=== PATIENT | male | born 1950 | race Caucasian/White ===

== ENCOUNTER 2016-10-11 12:11 | Outpatient (CLI) | payer MEDICARE, BC | END 2016-10-11 12:12 | disposition home or self-care (01) | DX: M19.071 Primary osteoarthritis, right ankle and foot (principal); M76.61 Achilles tendinitis, right leg; R60.0 Localized edema; M77.9 Enthesopathy, unspecified ==

== ENCOUNTER 2016-12-09 10:25 | Outpatient (CLI) | payer MEDICARE, BC | END 2016-12-09 10:26 | disposition home or self-care (01) | LOC: RT 10:25 | PROVIDERS: ATTEND Registered Nurse | DX: R00.2 Palpitations (principal) | CPT/HCPCS: 93005 ==

== ENCOUNTER 2016-12-09 10:56 | Emergency (ER) | payer MEDICARE, BC ==
[2016-12-09 11:26] LABS: BASOPHILS # (AUTO) 0.1 10^3/uL (0.0-0.1); BASOPHILS % (AUTO) 0.9 %; EOSINOPHILS # (AUTO) 0.2 10^3/uL (0.0-0.7); EOSINOPHILS % (AUTO) 2.6 %; HGB - HEMOGLOBIN 15.7 g/dL (14.0-18.0); LYMPHOCYTES # (AUTO) 1.6 10^3/uL (1.5-3.5); LYMPHOCYTES % (AUTO) 17.5 %; MEAN CORPUSCULAR HEMOGLOBIN 30.1 pg (27.0-31.0); MEAN CORPUSCULAR HGB CONC 34.9 g/dL (32.0-36.0); MEAN CORPUSCULAR VOLUME 86.3 fL (80.0-94.0); MEAN PLATELET VOLUME 8.6 fL (7.4-11.4); MONOCYTES # (AUTO) 1.2 10^3/uL (0.0-1.0); NEUTROPHILS # (AUTO) 6.1 10^3/uL (1.5-6.6); RED BLOOD COUNT 5.21 10^6/uL (4.70-6.10); RED CELL DISTRIBUTION WIDTH 13.5 % (12.0-15.0); UNCORRECTED WHITE BLOOD COUNT 9.3 x10^3/uL; WHITE BLOOD COUNT 9.3 x10^3/uL (4.8-10.8)
[2016-12-09 11:39] LABS: ALBUMIN/GLOBULIN RATIO 1.5 (1.0-2.2); BILIRUBIN,TOTAL 0.9 mg/dL (0.2-1.0); CALCIUM 9.3 mg/dL (8.5-10.3); CREATININE 0.9 mg/dL (0.6-1.2); POTASSIUM 3.6 mmol/L (3.5-5.0); TOTAL PROTEIN 7.1 g/dL (6.7-8.2)
--- NOTE | 2016-12-09 12:17 | XRAY Preliminary Report ---
Exam: XR Chest 1 View IMPRESSION: Cardiomegaly with probable mild CHF and early pulmonary edema. [facility] S[facility] [id number]
--- NOTE | 2016-12-09 12:19 | XRAY Report ---
EXAM: CHEST RADIOGRAPHY, PORTABLE ONE VIEW EXAM DATE: 12/09/2016 12:07 PM. CLINICAL HISTORY: 66-year-old male with shortness of breath. COMPARISON: None. TECHNIQUE: 1208 hour AP upright portable view. FINDINGS: Lungs/Pleura: Suboptimal inspiratory effort. Probable mild interstitial edema. No segmental or lobar consolidation, effusion or pneumothorax. Mediastinum: Cardiomegaly with mild pulmonary vascular congestion. Other: Trachea is midline. Osseous structures are unremarkable. IMPRESSION: Cardiomegaly with probable mild CHF and early pulmonary edema. [facility] Referring Provider Line: [phone] SITE ID: [id number]
--- NOTE | 2016-12-09 13:45 | ED Physician Documentation ---
History of Present Illness - Stated complaint Stated Complaint: DIFFICULTY BREATHING - Chief complaint Chief Complaint: Cardiac - Additonal information Additional information: hx from pt 66 male long hx PACand PVCs has seen cardio for same last cardio wup 2 yr ago included a stress and stress echo reportedly normal had a routine appy with PMD today about BP - PMD hear irreg HR and sent pt to the hospital for EKG - while getting the outpt EKG pt was symptomatic with palpitations and SOA (neither new) - so sent to the ER denies fever cough NVD chest pain and edema Review of Systems Constitutional: denies: Fever, Chills Throat: denies: Sore throat Cardiac: reports: Palpitations. denies: Chest pain / pressure Respiratory: reports: Dyspnea. denies: Cough GI: denies: Abdominal Pain, Nausea, Vomiting Musculoskeletal: denies: Extremity swelling Neurologic: denies: Generalized weakness PD PAST MEDICAL HISTORY - Past Medical History Past Medical History: No - Present Medications Home Medications: Ambulatory Orders Medication Instructions Recorded Confirmed Aspirin 1 tab PO DAILY 12/09/16 12/09/16 Lisinopril [Zestril] 40 mg PO DAILY 12/09/16 12/09/16 - Allergies Allergies/Adverse Reactions: Allergies Allergy/AdvReac Type Severity Reaction Status Date / Time Sulfa (Sulfonamide Allergy Rash Verified 12/09/16 12:41 Antibiotics) adhesive tape AdvReac Rash Verified 12/09/16 12:41 - Social History Does the pt smoke?: No Smoking Status: Never smoker Results - Vitals Vitals: Vital Signs - 24 hr 12/09/16 12/09/16 11:00 12:38 Temperature 36.6 C Heart Rate 77 67 Respiratory 18 16 Rate Blood Pressure 189/84 H 169/106 H O2 Saturation 98 98 Oxygen O2 Source Room air - EKG (time done) 1207 Rate: Rate (enter#) (69) Rhythm: NSR, Other (PVCs) QRS: LVH 1047 (outpt) Rate: Rate (enter#) (67) Rhythm: NSR, Other (PVCs) Ischemia: Non specific changes - Labs Labs: Laboratory Tests 12/09/16 12/09/16 12/09/16 11:00 11:00 11:00 WBC 9.3 RBC 5.21 Hgb 15.7 Hct 45.0 MCV 86.3 MCH 30.1 MCHC 34.9 RDW 13.5 Plt Count 194 MPV 8.6 Neut # 6.1 Lymph # 1.6 Dawes # 1.2 H Eos # 0.2 Baso # 0.1 Absolute Nucleated RBC 0.00 Nucleated RBCs 0.0 Sodium 137 Potassium 3.6 Chloride 105 Carbon Dioxide 25 Anion Gap 7.0 BUN 18 Creatinine 0.9 Estimated GFR (MDRD) 85 L Glucose 106 H Calcium 9.3 Total Bilirubin 0.9 AST 43 H ALT 59 Alkaline Phosphatase 70 Troponin I < 0.04 B-Natriuretic Peptide Total Protein 7.1 Albumin 4.3 Globulin 2.8 Albumin/Globulin Ratio 1.5 Lipase 28 12/09/16 12:40 WBC RBC Hgb Hct MCV MCH MCHC RDW Plt Count MPV Neut # Lymph # Dawes # Eos # Baso # Absolute Nucleated RBC Nucleated RBCs Sodium Potassium Chloride Carbon Dioxide Anion Gap BUN Creatinine Estimated GFR (MDRD) Glucose Calcium Total Bilirubin AST ALT Alkaline Phosphatase Troponin I B-Natriuretic Peptide 45 Total Protein Albumin Globulin Albumin/Globulin Ratio Lipase - Rads (name of study) CXR Radiology: See rad report (cardiomegaly, possible CHF/pulm edema) PD MEDICAL DECISION MAKING - ED course ED course: sx are not really new for pt EKG shows PVCs, no major arrhythmia lytes normal possible edema on CXR but no LE edema and neg BNP will reassure and dc to fup PMD for cionsideration of an event monitor and another echo / stress Departure - Departure Disposition: 01 Home, Self Care Clinical Impression: Palpitations Condition: Good Instructions: ED Palpitations Follow-Up: Hilary Rush, NURSE ORTHOPEDIC [Primary Care Provider] - Comments: Your EKG shows PVCs which you have had for years. The xray showed your heart is somewhat enlarged The blood tests were fine - normal electrolytes, no evidence of a heart attack or congestive heart failure. I think it is safe for you to go home. But I do recommend that your follow up with your PMD for further testing beyond what is available such as an event monitor, echocardiogram, and stress test Also your blood pressure was high today - please follow up with your PMD for a recheck
[2016-12-09 14:15] VITALS: BP 98/58
== END 2016-12-09 14:15 | disposition home or self-care (01) ==
LOC: ED 10:56
DX: R00.2 Palpitations (principal); I49.3 Ventricular premature depolarization
CPT/HCPCS: 36415; 71010; 80053; 83690; 83880; 84484; 85025; 93005; 93010; 99284

== ENCOUNTER 2017-07-29 21:46 | Emergency (ER) | payer MEDICARE, BC ==
[2017-07-29 22:54] LABS: BASOPHILS # (AUTO) 0.1 10^3/uL (0.0-0.1); BASOPHILS % (AUTO) 0.5 %; EOSINOPHILS # (AUTO) 0.3 10^3/uL (0.0-0.7); EOSINOPHILS % (AUTO) 2.8 %; HGB - HEMOGLOBIN 14.9 g/dL (14.0-18.0); LYMPHOCYTES # (AUTO) 1.5 10^3/uL (1.5-3.5); LYMPHOCYTES % (AUTO) 14.3 %; MEAN CORPUSCULAR HEMOGLOBIN 30.1 pg (27.0-31.0); MEAN CORPUSCULAR HGB CONC 34.6 g/dL (32.0-36.0); MEAN PLATELET VOLUME 7.7 fL (7.4-11.4); MONOCYTES # (AUTO) 0.9 10^3/uL (0.0-1.0); MONOCYTES % (AUTO) 8.1 %; NEUTROPHILS # (AUTO) 7.8 10^3/uL (1.5-6.6); NEUTROPHILS % (AUTO) 74.3 %; PLT - PLATELET COUNT 255 10^3/uL (130-450); RED BLOOD COUNT 4.96 10^6/uL (4.70-6.10); RED CELL DISTRIBUTION WIDTH 13.5 % (12.0-15.0); WHITE BLOOD COUNT 10.5 x10^3/uL (4.8-10.8)
[2017-07-29 23:05] LABS: ALBUMIN 3.9 g/dL (3.2-5.5); ALBUMIN/GLOBULIN RATIO 1.3 (1.0-2.2); BILIRUBIN,TOTAL 0.4 mg/dL (0.2-1.0); CALCIUM 9.2 mg/dL (8.5-10.3); CREATININE 0.9 mg/dL (0.6-1.2); TOTAL PROTEIN 6.9 g/dL (6.7-8.2)
--- NOTE | 2017-07-29 23:27 | ED Physician Documentation ---
PD HPI OPHTHO - Stated complaint Stated Complaint: BLURRY VISION/PX UNDER RIBS - Chief complaint Chief Complaint: Neuro - History obtained from History obtained from: Patient, Family - History of Present Illness Timing - onset: How many days ago (4) Timing - details: Now resolved, Intermittant Location: Left Associated symptoms: Decreased vision. No: Redness, Swelling Similar symptoms before: Has not had sx before Recently seen: Not recently seen - Additional information Additional information: patient is a 67 year old male with a history of htn, a fib and pre diabetic who is presenting to the emergency department for intermittent blurry vision/vision loss. patient states that he has had three episodes in the last week. the last one was today and lasted about 15 minutes. patient denies any aggravating or alleviating factors and reports that it is painless. patient states that currently the symptoms are gone. patient states that he has a follow up appointment tomorrow with his eye doctor. patient also is complaining of mild abdominal pain. PD PAST MEDICAL HISTORY - Past Medical History Past Medical History: Yes Cardiovascular: Hypertension, High cholesterol, Atrial fibrillation GI: GERD Other Past Medical History: Kidney Cancer - Past Surgical History Past Surgical History: Yes - Present Medications Home Medications: Ambulatory Orders Medication Instructions Recorded Confirmed Lisinopril [Zestril] 40 mg PO DAILY 12/09/16 07/29/17 Atorvastatin Calcium 10 mg PO QPM 07/29/17 07/29/17 Diclofenac Sodium 100 gm TP 07/29/17 Flecainide [Tambocar] 1 tab PO BID 07/29/17 07/29/17 Glucosamine/Chondro Tyson A 1 tab PO BID 07/29/17 07/29/17 [Glucosamine-Chondroitin Tab] Levocetirizine Dihydrochloride 1 tab PO DAILY 07/29/17 07/29/17 [Xyzal] Magnesium Citrate 1 cap PO BID 07/29/17 07/29/17 Metoprolol Succinate 1 tab PO BID 07/29/17 07/29/17 Multivitamin [Multiple Vitamins] 1 tab PO DAILY 07/29/17 07/29/17 Ranitidine HCl [Zantac] 1 tab PO QPM 07/29/17 07/29/17 Rivaroxaban [Xarelto] 1 tab PO QPM 07/29/17 07/29/17 hydroCHLOROthiazide 1 tab PO DAILY 07/29/17 07/29/17 [Hydrochlorothiazide] - Allergies Allergies/Adverse Reactions: Allergies Allergy/AdvReac Type Severity Reaction Status Date / Time Sulfa (Sulfonamide Allergy Rash Verified 07/29/17 22:13 Antibiotics) adhesive tape AdvReac Rash Verified 07/29/17 22:13 - Social History Does the pt smoke?: No Smoking Status: Never smoker Does the pt drink ETOH?: Yes ETOH Use: Liquor Does the pt have substance abuse?: No - Immunizations Immunizations are current?: Yes - POLST Patient has POLST: No Results - Vitals Vitals: Vital Signs - 24 hr 07/29/17 07/29/17 21:50 22:21 Temperature 36.8 C Heart Rate 65 67 Respiratory 12 15 Rate Blood Pressure 159/80 H 177/96 H O2 Saturation 98 98 Oxygen O2 Source Room air - Labs Labs: Laboratory Tests 07/29/17 07/29/17 22:45 22:45 WBC 10.5 RBC 4.96 Hgb 14.9 Hct 43.1 MCV 87.0 MCH 30.1 MCHC 34.6 RDW 13.5 Plt Count 255 MPV 7.7 Neut # 7.8 H Lymph # 1.5 Louisa # 0.9 Eos # 0.3 Baso # 0.1 Absolute Nucleated RBC 0.00 Nucleated RBC % 0.0 Sodium 135 Potassium 3.5 Chloride 97 L Carbon Dioxide 25 Anion Gap 13.0 BUN 19 Creatinine 0.9 Estimated GFR (MDRD) 84 L Glucose 160 H Calcium 9.2 Total Bilirubin 0.4 AST 43 H ALT 57 Alkaline Phosphatase 82 Total Protein 6.9 Albumin 3.9 Globulin 3.0 Albumin/Globulin Ratio 1.3 Lipase 32 Departure - Departure Disposition: 01 Home, Self Care Clinical Impression: CRVO (central retinal vein occlusion) Condition: Good Instructions: Vision Probs Follow-Up: REBECCA DAWKINS MD [Primary Care Provider] - Tomorrow Comments: Your diagnostics today were within normal limits. It is important that you follow up with your eye doctor tomorrow for a more thorough exam. You may return to the emergency department at any time for new, worsening or uncontrollable symptoms.
[2017-07-29 23:51] VITALS: BP 127/77
== END 2017-07-29 23:43 | disposition home or self-care (01) ==
LOC: ED 21:46
DX: H34.8192 Central retinal vein occlusion, unspecified eye, stable (principal); R10.11 Right upper quadrant pain; I10 Essential (primary) hypertension; I48.91 Unspecified atrial fibrillation; Z79.01 Long term (current) use of anticoagulants; K21.9 Gastro-esophageal reflux disease without esophagitis; Z85.528 Personal history of other malignant neoplasm of kidney
CPT/HCPCS: 36415; 80053; 83690; 85025; 93005; 99283; 99285

== ENCOUNTER 2017-10-10 13:31 | Outpatient (CLI) | payer MEDICARE, BC | END 2017-10-10 13:32 | disposition home or self-care (01) | LOC: DI 13:31 | PROVIDERS: ATTEND Nurse Practitioner | DX: C25.0 Malignant neoplasm of head of pancreas (principal); I26.09 Other pulmonary embolism with acute cor pulmonale | CPT/HCPCS: 93306 ==

== ENCOUNTER 2017-10-13 21:44 | Emergency (ER) | payer MEDICARE, BC ==
[2017-10-13 22:10] LABS: BASOPHILS % (AUTO) 0.2 %; HGB - HEMOGLOBIN 13.3 g/dL (14.0-18.0); LYMPHOCYTES # (AUTO) 0.4 10^3/uL (1.5-3.5); MEAN CORPUSCULAR HEMOGLOBIN 29.2 pg (27.0-31.0); MEAN CORPUSCULAR HGB CONC 34.4 g/dL (32.0-36.0); MEAN CORPUSCULAR VOLUME 84.8 fL (80.0-94.0); MEAN PLATELET VOLUME 7.8 fL (7.4-11.4); MONOCYTES # (AUTO) 0.2 10^3/uL (0.0-1.0); MONOCYTES % (AUTO) 1.5 %; NEUTROPHILS # (AUTO) 12.6 10^3/uL (1.5-6.6); NEUTROPHILS % (AUTO) 95.3 %; PLT - PLATELET COUNT 312 10^3/uL (130-450); RED BLOOD COUNT 4.57 10^6/uL (4.70-6.10); RED CELL DISTRIBUTION WIDTH 13.8 % (12.0-15.0); WHITE BLOOD COUNT 13.2 x10^3/uL (4.8-10.8)
[2017-10-13 22:11] LABS: BILIRUBIN,URINE NEGATIVE (NEGATIVE); GLUCOSE, URINE (UA) NEGATIVE (NEGATIVE); KETONES,URINE (UA) NEGATIVE (NEGATIVE); LEUKOCYTE ESTERASE, URINE NEGATIVE (NEGATIVE); NITRITE,URINE NEGATIVE (NEGATIVE); OCCULT BLOOD,URINE NEGATIVE (NEGATIVE); PROTEIN,URINE NEGATIVE (NEGATIVE); UROBILINOGEN,URINE 0.2 (NORMAL) E.U./dL (NORMAL)
[2017-10-13 22:14] LABS: CLARITY,URINE CLEAR (CLEAR)
[2017-10-13] MEDS ORDERED: SODIUM CHLORIDE 0.9% 1,000 ML IV ONE (22:20)
[2017-10-13 22:21] LABS: ALBUMIN 3.4 g/dL (3.2-5.5); BILIRUBIN,TOTAL 1.7 mg/dL (0.2-1.0); CALCIUM 8.5 mg/dL (8.5-10.3); CREATININE 0.9 mg/dL (0.6-1.2); TOTAL PROTEIN 6.9 g/dL (6.7-8.2)
[2017-10-13] MEDS ORDERED: IOPAMIDOL-300 100 ML VIAL ONE (22:44)
[2017-10-13] MEDS ORDERED: ONDANSETRON 4 MG/2 ML VIAL IVP STA (23:12)
[2017-10-13] MEDS ORDERED: ACETAMINOPHEN 500 MG TABLET PO STA (23:14)
[2017-10-13] MEDS ORDERED: ENOXAPARIN 100 MG/ML SYRINGE SUBQ STA (23:14)
--- NOTE | 2017-10-13 23:27 | XRAY Report ---
EXAM: CHEST RADIOGRAPHY EXAM DATE: 10/13/2017 11:11 PM. CLINICAL HISTORY: Fever. Leukocytosis. History of pancreatic cancer. COMPARISON: 12/09/2016. TECHNIQUE: 2 views. FINDINGS: Lungs/Pleura: No focal opacities evident. No pleural effusion. No pneumothorax. Normal volumes. Mediastinum: Large heart. Other: Right IJ line to the cavoatrial junction. No compression fractures. IMPRESSION: 1. Clear lungs. 2. Large heart. [facility] Referring Provider Line: [phone] SITE ID: [id number]
--- NOTE | 2017-10-14 00:12 | ED Physician Documentation ---
History of Present Illness - Stated complaint Stated Complaint: FEVER,MALE - Chief complaint Chief Complaint: Abd Pain - History obtained from History obtained from: Patient, Family - History of Present Illness Timing: Today - Additonal information Additional information: Patient is a 67 year old male with a history of metastatic pancreatic CA with mets to the liver, kidney, stomach and chest. patient states that he started chemotherapy today. After chemotherapy patient developed a low grade fever. patient also states that he has a history of urinary tract infections and he felt like he had dysuria. Patient called his oncologist and talked with Dr. Ballesteros the covering physician who recommended that the patient come in for evaluation. Review of Systems Constitutional: reports: Fever. denies: Myalgias Eyes: denies: Decreased vision Ears: denies: Ear pain, Drainage/discharge Nose: denies: Congestion Throat: denies: Dental pain / toothache Cardiac: denies: Chest pain / pressure, Palpitations Respiratory: denies: Cough, Wheezing GI: reports: Abdominal Pain, Nausea. denies: Vomiting, Constipation, Diarrhea : reports: Dysuria, Frequency Skin: denies: Rash, Lesions Musculoskeletal: reports: Reviewed and negative Neurologic: denies: Generalized weakness, Focal weakness, Numbness, Headache, Head injury Immunocompromised: reports: Immunocompromised, Chemotherapy PD PAST MEDICAL HISTORY - Past Medical History Cardiovascular: Hypertension, High cholesterol, Atrial fibrillation GI: GERD Other Past Medical History: PE, pancreatic cancer, stomach cancer - Past Surgical History Past Surgical History: Yes - Present Medications Home Medications: Ambulatory Orders Medication Instructions Recorded Confirmed Lisinopril [Zestril] 40 mg PO DAILY 12/09/16 07/29/17 Atorvastatin Calcium 10 mg PO QPM 07/29/17 07/29/17 Diclofenac Sodium 100 gm TP 07/29/17 Flecainide [Tambocar] 1 tab PO BID 07/29/17 07/29/17 Glucosamine/Chondro Tyson A 1 tab PO BID 07/29/17 07/29/17 [Glucosamine-Chondroitin Tab] Levocetirizine Dihydrochloride 1 tab PO DAILY 07/29/17 07/29/17 [Xyzal] Magnesium Citrate 1 cap PO BID 07/29/17 07/29/17 Metoprolol Succinate 1 tab PO BID 07/29/17 07/29/17 Multivitamin [Multiple Vitamins] 1 tab PO DAILY 07/29/17 07/29/17 Ranitidine HCl [Zantac] 1 tab PO QPM 07/29/17 07/29/17 Rivaroxaban [Xarelto] 1 tab PO QPM 07/29/17 07/29/17 hydroCHLOROthiazide 1 tab PO DAILY 07/29/17 07/29/17 [Hydrochlorothiazide] Ondansetron Odt [Zofran] 4 mg TL Q6H PRN #14 tablet 10/14/17 - Allergies Allergies/Adverse Reactions: Allergies Allergy/AdvReac Type Severity Reaction Status Date / Time Sulfa (Sulfonamide Allergy Rash Verified 10/13/17 21:53 Antibiotics) adhesive tape AdvReac Rash Verified 10/13/17 21:53 - Social History Does the pt smoke?: No Smoking Status: Never smoker Does the pt drink ETOH?: Yes Does the pt have substance abuse?: No - Immunizations Immunizations are current?: Yes - POLST Patient has POLST: No PD ED PE NORMAL - Vitals Vital signs reviewed: Yes - General General: Alert and oriented X 3 - HEENT HEENT: Atraumatic - Neck Neck: Supple, no meningeal sign - Respiratory Respiratory: No respiratory distress - Derm Derm: Normal color, Warm and dry - Extremities Extremities: No deformity - Neuro Neuro: Alert and oriented X 3, No motor deficit Eye Opening: Spontaneous Motor: Obeys Commands Verbal: Oriented GCS Score: 15 PD ED PE EXPANDED - HEENT HEENT: Dry mucous membranes - Cardiac Cardiac: Tachy - Abdomen Abdomen: Tender to palpation, Generalized/diffuse. No: Rebound, Guarding Results - Vitals Vitals: Vital Signs - 24 hr 10/13/17 10/13/17 10/14/17 21:50 23:10 00:00 Temperature 37.4 C 38.3 C H Heart Rate 117 H 101 H 88 Respiratory 20 18 18 Rate Blood Pressure 163/77 H 139/79 H 133/76 H O2 Saturation 97 99 95 10/14/17 00:23 Temperature 37.4 C Heart Rate Respiratory Rate Blood Pressure O2 Saturation Oxygen O2 Source Room air - Labs Labs: Laboratory Tests 10/13/17 10/13/17 10/13/17 21:50 21:50 21:50 WBC 13.2 H RBC 4.57 L Hgb 13.3 L Hct 38.8 L MCV 84.8 MCH 29.2 MCHC 34.4 RDW 13.8 Plt Count 312 MPV 7.8 Neut # 12.6 H Lymph # 0.4 L Rankin # 0.2 Eos # 0.0 Baso # 0.0 Absolute Nucleated RBC 0.00 Nucleated RBC % 0.0 Sodium 131 L Potassium 3.5 Chloride 97 L Carbon Dioxide 24 Anion Gap 10.0 BUN 21 H Creatinine 0.9 Estimated GFR (MDRD) 84 L Glucose 141 H Lactic Acid 1.5 Calcium 8.5 Total Bilirubin 1.7 H AST 298 H ALT 261 H Alkaline Phosphatase 304 H Total Protein 6.9 Albumin 3.4 Globulin 3.5 Albumin/Globulin Ratio 1.0 Lipase 20 L Urine Color Urine Clarity Urine pH Ur Specific Stollings Urine Protein Urine Glucose (UA) Urine Ketones Urine Occult Blood Urine Nitrite Urine Bilirubin Urine Urobilinogen Ur Leukocyte Esterase Ur Microscopic Review Urine Culture Comments Influenza A (Rapid) Influenza B (Rapid) Influenza Types A,B Ag 10/13/17 10/13/17 22:03 22:30 WBC RBC Hgb Hct MCV MCH MCHC RDW Plt Count MPV Neut # Lymph # Rankin # Eos # Baso # Absolute Nucleated RBC Nucleated RBC % Sodium Potassium Chloride Carbon Dioxide Anion Gap BUN Creatinine Estimated GFR (MDRD) Glucose Lactic Acid Calcium Total Bilirubin AST ALT Alkaline Phosphatase Total Protein Albumin Globulin Albumin/Globulin Ratio Lipase Urine Color YELLOW Urine Clarity CLEAR Urine pH 6.0 Ur Specific Stollings 1.025 Urine Protein NEGATIVE Urine Glucose (UA) NEGATIVE Urine Ketones NEGATIVE Urine Occult Blood NEGATIVE Urine Nitrite NEGATIVE Urine Bilirubin NEGATIVE Urine Urobilinogen 0.2 (NORMAL) Ur Leukocyte Esterase NEGATIVE Ur Microscopic Review NOT INDICATED Urine Culture Comments NOT INDICATED Influenza A (Rapid) Negative Influenza B (Rapid) Negative Influenza Types A,B Ag - - Rads (name of study) chest x-ray Radiology: Final report received (no infiltrate) PD MEDICAL DECISION MAKING - ED course Complexity details: reviewed old records, reviewed results, re-evaluated patient , considered differential, d/w patient, d/w family, d/w technical assistance consultant ED course: patient was seen and examined at bedside. IV access was gained, labs were drawn including blood cultures. Patient's urine was collected. patient was treated with at fluid bolus. Patient's urinalysis showed no signs of infection so chest x-ray and influenza were also ordered. Patient was found to have a leukocytosis but no source. patient's oncologist, Dr. Ballesteros was contacted and the case was discussed with him. He stated that it could be a reaction to the chemo and that he would not start antibiotics at this point. He stated that the patient could follow up with the office tomorrow. Patient and family were made aware of, and were comfortable with the plan. Patient was stable for discharge with outpatient follow up. Departure - Departure Disposition: 01 Home, Self Care Clinical Impression: Fever Condition: Stable Instructions: ACETAMINOPHEN (Adult) Follow-Up: REBECCA DAWKINS MD [Primary Care Provider] - Prescriptions: Ondansetron Odt [Zofran] 4 mg TL Q6H PRN #14 tablet PRN Reason: Nausea / Vomiting Comments: Your urinalysis and chest x-ray were negative today. Your fever is likely secondary to your chemotherapy today. It is important to stay well hydrated and call the oncology group tomorrow and schedule a close follow up appointment. You should continue with tylenol for fevers. You may return to the emergency department at any time for new, worsening or uncontrollable symptoms. Discharge Date/Time: 10/14/17 00:23
[2017-10-14 00:22] VITALS: BP 133/76
--- NOTE | 2017-10-14 07:21 | ED Physician Documentation ---
ED Addendum - Addendum Addendum: 10/14/17 07:[address]ology inquiring about a CT AP ordered for this pt chart accessed to assist per nurse EG, who cared for pt, Dr Saamniego cancelled the CT
== END 2017-10-14 00:23 | disposition home or self-care (01) ==
LOC: ED 21:44
DX: R50.9 Fever, unspecified (principal); C25.9 Malignant neoplasm of pancreas, unspecified; C78.7 Secondary malignant neoplasm of liver and intrahepatic bile duct; C78.89 Secondary malignant neoplasm of other digestive organs; C79.00 Secondary malignant neoplasm of unspecified kidney and renal pelvis; I10 Essential (primary) hypertension; E78.00 Pure hypercholesterolemia, unspecified; Z92.21 Personal history of antineoplastic chemotherapy
CPT/HCPCS: 36415; 71046; 80053; 81003; 83605; 83690; 85025; 87040; 87275; 87276; 96361; 96372; 96374; 99283; 99284; A9270; J1650; 81001; 87086

== ENCOUNTER 2017-11-11 13:00 | Outpatient (CLI) | payer MEDICARE, BC | END 2017-11-11 13:01 | disposition home or self-care (01) | LOC: LAB.R 13:00 | PROVIDERS: ATTEND Nurse Practitioner Family | DX: R10.9 Unspecified abdominal pain (principal); R19.7 Diarrhea, unspecified | CPT/HCPCS: 87493 ==

== ENCOUNTER 2017-12-08 08:00 | Outpatient (CLI) | payer MEDICARE, BC ==
[2017-12-08 17:38] LABS: BASOPHILS % (AUTO) 1.1 %; EOSINOPHILS # (AUTO) 0.1 10^3/uL (0.0-0.7); EOSINOPHILS % (AUTO) 2.1 %; HGB - HEMOGLOBIN 10.8 g/dL (14.0-18.0); LYMPHOCYTES # (AUTO) 0.3 10^3/uL (1.5-3.5); LYMPHOCYTES % (AUTO) 7.8 %; MEAN CORPUSCULAR HEMOGLOBIN 28.4 pg (27.0-31.0); MEAN CORPUSCULAR HGB CONC 33.1 g/dL (32.0-36.0); MEAN CORPUSCULAR VOLUME 85.6 fL (80.0-94.0); MEAN PLATELET VOLUME 8.2 fL (7.4-11.4); MONOCYTES # (AUTO) 0.3 10^3/uL (0.0-1.0); MONOCYTES % (AUTO) 7.5 %; NEUTROPHILS # (AUTO) 3.4 10^3/uL (1.5-6.6); NEUTROPHILS % (AUTO) 81.5 %; PLT - PLATELET COUNT 233 10^3/uL (130-450); RED BLOOD COUNT 3.81 10^6/uL (4.70-6.10); RED CELL DISTRIBUTION WIDTH 17.9 % (12.0-15.0); WHITE BLOOD COUNT 4.2 x10^3/uL (4.8-10.8)
[2017-12-08 18:19] LABS: ALBUMIN 2.4 g/dL (3.2-5.5); ALBUMIN/GLOBULIN RATIO 0.6 (1.0-2.2); BILIRUBIN,TOTAL 1.4 mg/dL (0.2-1.0); CALCIUM 8.6 mg/dL (8.5-10.3); CREATININE 0.8 mg/dL (0.6-1.2); TOTAL PROTEIN 6.4 g/dL (6.7-8.2)
== END 2017-12-08 08:01 | disposition home or self-care (01) ==
LOC: LAB.F 08:00
PROVIDERS: ATTEND Internal Medicine Hematology & Oncology
DX: C25.0 Malignant neoplasm of head of pancreas (principal); I26.09 Other pulmonary embolism with acute cor pulmonale
CPT/HCPCS: 36415; 80053; 85025

== ENCOUNTER 2017-12-28 13:34 | Outpatient (CLI) | payer MEDICARE, BC ==
[2017-12-28 18:04] LABS: BASOPHILS % (AUTO) 1.3 %; EOSINOPHILS % (AUTO) 0.8 %; HGB - HEMOGLOBIN 11.1 g/dL (14.0-18.0); LYMPHOCYTES % (AUTO) 9.1 %; MEAN CORPUSCULAR HEMOGLOBIN 28.7 pg (27.0-31.0); MEAN CORPUSCULAR HGB CONC 32.1 g/dL (32.0-36.0); MEAN CORPUSCULAR VOLUME 89.7 fL (80.0-94.0); MEAN PLATELET VOLUME 7.5 fL (7.4-11.4); NEUTROPHILS % (AUTO) 71.8 %; PLT - PLATELET COUNT 611 10^3/uL (130-450); RED BLOOD COUNT 3.85 10^6/uL (4.70-6.10); RED CELL DISTRIBUTION WIDTH 20.2 % (12.0-15.0)
[2017-12-28 18:05] LABS: ABNORMAL LYMPHS % (MANUAL) 0 %; BAND NEUTROPHILS % (MANUAL) 0 %
[2017-12-28 18:22] LABS: ALBUMIN 2.1 g/dL (3.2-5.5); ALBUMIN/GLOBULIN RATIO 0.6 (1.0-2.2); BILIRUBIN,TOTAL 0.9 mg/dL (0.2-1.0); CALCIUM 8.3 mg/dL (8.5-10.3); CREATININE 0.7 mg/dL (0.6-1.2); TOTAL PROTEIN 5.9 g/dL (6.7-8.2)
[2017-12-28 20:18] LABS: BASOPHILS # (MANUAL) 0.3 10^3/uL (0-0.1); BASOPHILS % (MANUAL) 2 %; EOSINOPHILS # (MANUAL) 0.3 10^3/uL (0-0.7); LYMPHOCYTES # (MANUAL) 1.5 10^3/uL (1.5-3.5); LYMPHOCYTES % (MANUAL) 9 %; METAMYELOCYTES % (MANUAL) 3 %; MONOCYTES # (MANUAL) 2.1 10^3/uL (0.0-1.0); MYELOCYTES % (MANUAL) 3 %; NEUTROPHILS # (MANUAL) 8.8 10^3/uL (1.5-6.6); NEUTROPHILS % (MANUAL) 63 %; PROMYELOCYTES % (MANUAL) 1 %
[2017-12-28 20:20] LABS: PLATELET ESTIMATE, MANUAL INCREASED (>450,000) (NORMAL); PLATELET MORPHOLOGY NORMAL APPEARANCE (NORMAL)
== END 2017-12-28 13:35 | disposition home or self-care (01) ==
LOC: LAB.F 13:34
PROVIDERS: ATTEND Internal Medicine Hematology & Oncology
DX: C25.0 Malignant neoplasm of head of pancreas (principal)
CPT/HCPCS: 36415; 80053; 85025

== ENCOUNTER 2018-01-05 11:42 | Outpatient (CLI) | payer MEDICARE, BC ==
[2018-01-05 17:42] LABS: CALCIUM 8.6 mg/dL (8.5-10.3); CREATININE 0.8 mg/dL (0.6-1.2)
== END 2018-01-05 23:59 | disposition home or self-care (01) ==
LOC: LAB.F 11:42
PROVIDERS: ATTEND Internal Medicine Hematology & Oncology
DX: C25.0 Malignant neoplasm of head of pancreas (principal); I26.09 Other pulmonary embolism with acute cor pulmonale
CPT/HCPCS: 80048

== ENCOUNTER 2018-01-11 12:19 | Outpatient (CLI) | payer MEDICARE, BC ==
[2018-01-11 17:43] LABS: BASOPHILS # (AUTO) 0.1 10^3/uL (0.0-0.1); BASOPHILS % (AUTO) 1.4 %; EOSINOPHILS # (AUTO) 0.1 10^3/uL (0.0-0.7); EOSINOPHILS % (AUTO) 2.6 %; HGB - HEMOGLOBIN 11.5 g/dL (14.0-18.0); LYMPHOCYTES # (AUTO) 0.7 10^3/uL (1.5-3.5); LYMPHOCYTES % (AUTO) 15.1 %; MEAN CORPUSCULAR HEMOGLOBIN 28.8 pg (27.0-31.0); MEAN CORPUSCULAR HGB CONC 32.7 g/dL (32.0-36.0); MEAN CORPUSCULAR VOLUME 88.1 fL (80.0-94.0); MEAN PLATELET VOLUME 7.6 fL (7.4-11.4); MONOCYTES # (AUTO) 0.8 10^3/uL (0.0-1.0); MONOCYTES % (AUTO) 15.3 %; NEUTROPHILS # (AUTO) 3.2 10^3/uL (1.5-6.6); NEUTROPHILS % (AUTO) 65.6 %; PLT - PLATELET COUNT 329 10^3/uL (130-450); RED CELL DISTRIBUTION WIDTH 18.8 % (12.0-15.0); WHITE BLOOD COUNT 4.9 x10^3/uL (4.8-10.8)
[2018-01-11 18:11] LABS: ALBUMIN 2.3 g/dL (3.2-5.5); ALBUMIN/GLOBULIN RATIO 0.6 (1.0-2.2); BILIRUBIN,TOTAL 0.9 mg/dL (0.2-1.0); CALCIUM 8.6 mg/dL (8.5-10.3); CREATININE 0.9 mg/dL (0.6-1.2)
== END 2018-01-11 12:20 | disposition home or self-care (01) ==
LOC: LAB.F 12:19
PROVIDERS: ATTEND Internal Medicine Hematology & Oncology
DX: C25.0 Malignant neoplasm of head of pancreas (principal); I26.09 Other pulmonary embolism with acute cor pulmonale
CPT/HCPCS: 36415; 80053; 85025

== ENCOUNTER 2018-01-21 13:30 | Outpatient (CLI) | payer MEDICARE, BC ==
[2018-01-21 17:42] LABS: INR 1.2 (0.8-1.2); PT - PROTHROMBIN TIME 13.3 secs (9.9-12.6)
== END 2018-01-21 13:31 | disposition home or self-care (01) ==
LOC: LAB.F 13:30
PROVIDERS: ATTEND Physician Assistant
DX: C25.0 Malignant neoplasm of head of pancreas (principal); I26.09 Other pulmonary embolism with acute cor pulmonale
CPT/HCPCS: 36415; 85610; 85730

== ENCOUNTER 2018-01-26 12:58 | Outpatient (CLI) | payer MEDICARE, BC ==
[2018-01-26 17:43] LABS: BASOPHILS # (AUTO) 0.1 10^3/uL (0.0-0.1); BASOPHILS % (AUTO) 1.3 %; EOSINOPHILS # (AUTO) 0.1 10^3/uL (0.0-0.7); EOSINOPHILS % (AUTO) 1.4 %; HGB - HEMOGLOBIN 11.3 g/dL (14.0-18.0); LYMPHOCYTES # (AUTO) 0.8 10^3/uL (1.5-3.5); LYMPHOCYTES % (AUTO) 15.7 %; MEAN CORPUSCULAR HEMOGLOBIN 28.1 pg (27.0-31.0); MEAN CORPUSCULAR HGB CONC 32.1 g/dL (32.0-36.0); MEAN CORPUSCULAR VOLUME 87.5 fL (80.0-94.0); MEAN PLATELET VOLUME 7.5 fL (7.4-11.4); MONOCYTES % (AUTO) 20.3 %; NEUTROPHILS % (AUTO) 61.3 %; PLT - PLATELET COUNT 346 10^3/uL (130-450); RED CELL DISTRIBUTION WIDTH 18.3 % (12.0-15.0); WHITE BLOOD COUNT 4.9 x10^3/uL (4.8-10.8)
[2018-01-26 17:57] LABS: ALBUMIN 2.5 g/dL (3.2-5.5); ALBUMIN/GLOBULIN RATIO 0.7 (1.0-2.2); BILIRUBIN,TOTAL 0.4 mg/dL (0.2-1.0); CALCIUM 8.7 mg/dL (8.5-10.3); CREATININE 0.8 mg/dL (0.6-1.2); TOTAL PROTEIN 6.3 g/dL (6.7-8.2)
== END 2018-01-26 12:59 | disposition home or self-care (01) ==
LOC: LAB.F 12:58
PROVIDERS: ATTEND Physician Assistant
DX: C25.0 Malignant neoplasm of head of pancreas (principal); I26.09 Other pulmonary embolism with acute cor pulmonale
CPT/HCPCS: 36415; 80053; 85025

== ENCOUNTER 2018-03-09 13:26 | Outpatient (CLI) | payer MEDICARE, BC ==
[2018-03-09 17:34] LABS: BASOPHILS % (AUTO) 1.3 %; EOSINOPHILS % (AUTO) 1.3 %; HGB - HEMOGLOBIN 11.7 g/dL (14.0-18.0); LYMPHOCYTES # (AUTO) 0.7 10^3/uL (1.5-3.5); LYMPHOCYTES % (AUTO) 18.8 %; MEAN CORPUSCULAR HEMOGLOBIN 28.4 pg (27.0-31.0); MEAN CORPUSCULAR HGB CONC 33.7 g/dL (32.0-36.0); MEAN CORPUSCULAR VOLUME 84.4 fL (80.0-94.0); MEAN PLATELET VOLUME 7.2 fL (7.4-11.4); MONOCYTES # (AUTO) 0.8 10^3/uL (0.0-1.0); MONOCYTES % (AUTO) 23.4 %; NEUTROPHILS # (AUTO) 1.9 10^3/uL (1.5-6.6); NEUTROPHILS % (AUTO) 55.2 %; PLT - PLATELET COUNT 283 10^3/uL (130-450); RED BLOOD COUNT 4.12 10^6/uL (4.70-6.10); RED CELL DISTRIBUTION WIDTH 18.3 % (12.0-15.0); WHITE BLOOD COUNT 3.5 x10^3/uL (4.8-10.8)
[2018-03-09 19:12] LABS: ALBUMIN 2.2 g/dL (3.2-5.5); ALBUMIN/GLOBULIN RATIO 0.5 (1.0-2.2); BILIRUBIN,TOTAL 0.5 mg/dL (0.2-1.0); CALCIUM 8.6 mg/dL (8.5-10.3); CREATININE 0.8 mg/dL (0.6-1.2); TOTAL PROTEIN 6.6 g/dL (6.7-8.2)
== END 2018-03-09 13:27 | disposition home or self-care (01) ==
LOC: LAB.F 13:26
PROVIDERS: ATTEND Internal Medicine Hematology & Oncology
DX: C25.0 Malignant neoplasm of head of pancreas (principal); I26.09 Other pulmonary embolism with acute cor pulmonale
CPT/HCPCS: 36415; 80053; 85025; 86301

== ENCOUNTER 2018-03-22 18:56 | Outpatient (CLI) | payer MEDICARE, BC ==
--- NOTE | 2018-03-22 19:03 | CONSULTATION NOTE ---
Palliative Care Consultation - Referral Referring Provider: Sahra YOUNG Time of Visit: [id number] Referral setting: Home Referral Reason: Pancreatic Cancer with liver, lung mets and peritoneal carcinomatosis - Information Sources Records reviewed: Previous records reviewed History/Review of Systems obtained from: Patient, Family ( Sandra and Daughter Delia present for visit) Exam limitations: No limitations - History of Present Illness Brief History of Present Illness: Thank you Sahra YOUNG, for asking the palliative care consult service to provide support here in his own community through [email or web address]. Will follow up with Dr. Sun, and transition consult, Thank you for making this connection. This is a 67-year-old gentleman who presented in September in 2017 with progressive dyspnea and abdominal bloating, was found to have bilateral segmental PEs, and in workup found innumerable hepatic lesions, and a mass of 1.7 cm x 3.6 cm in the body of the pancreas. He also had celiac and retroperitoneal adenopathy and peritoneal carcinomatosis as well as ascites and lung mets. He had CT-guided biopsy with a diagnosis of metastatic adenocarcinoma with mucinous differentiation. He had a prolonged hospital stay related to this, was initiated on treatment in October of gemcitabine/Abraxane. He did poorly with this regimen, and was hospitalized with fever, and on restaging on 12/21/2017 was found to have an increase in liver lesions. Since this time in December, he has been on FOLFOX, he has received a total of 5 cycles, due to receive his 6th this week. He has done better with this treatment. He continues though have severe recurrent ascites, necessitating paracentesis about every 2-3 weeks with a fairly large volume removed of anywhere from 6 to most recently 8 L of fluid. He recently had a second opinion at [facility], unfortunately he was not a candidate for a clinical trial, and was very disappointed in the outcome of this visit. His most significant symptom burden actually is fatigue, he does have large abdomen with ascites, is expecting to be tapped this Thursday. He does get some shortness of breath as he gets close to this time, has early satiety, has lost about 50 pounds over all, the most problematic for patient is his difficulty with alternating constipation and diarrhea. Denies any acute pain, though does appear somewhat uncomfortable with his swelling. Palliative care did see him a [facility], and recommended ongoing support for advanced care planning, symptom management, and to address transitions in the future. 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 (Patient lives on [address] [facility], he has been 38 years to Xiao, they do have 2 children Delia is a pediatric nurse who is present for the visit. They also have a son Sean is 35, and 2 grandchildren who are 7 and 3 that [place]. He identifies this as a support, and at goal. 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) Family History - Family History Family History: Mother: (mother CHF 72), Father: , CAD, Sister: Alive and Well ( of brain cancer at 51; sister of bone cancer 60) Medications/Allergies - Medications Home Medications: Ambulatory Orders Medication Instructions Recorded Confirmed Metoprolol Succinate 25 tab PO DAILY 07/29/17 03/22/18 Ranitidine HCl [Zantac] 1 tab PO QPM 07/29/17 03/22/18 Ondansetron Odt [Zofran] 4 mg TL Q6H PRN #14 tablet 10/14/17 03/22/18 Enoxaparin [Lovenox] 120 mg SL DAILY 03/22/18 03/22/18 Furosemide 20 mg PO DAILY 03/22/18 03/22/18 Lactobacillus Acidophilus 1 cap PO DAILY 03/22/18 03/22/18 [Probiotic Acidophilus] Lipase/Protease/Amylase [Creon Dr 1 cap PO TID 03/22/18 03/22/18 3,000 Units Capsule] Opium Tincture 0.4 ml PO Q4HR PRN 03/22/18 03/22/18 Polyethylene Glycol 3350 [Miralax] 17 gm PO DAILY 03/22/18 03/22/18 Prochlorperazine Maleate 10 mg PO Q6HR PRN 03/22/18 03/22/18 [Compazine] Spironolactone 50 mg PO DAILY 03/22/18 03/22/18 - Allergies Allergies/Adverse Reactions: Allergies Allergy/AdvReac Type Severity Reaction Status Date / Time Sulfa (Sulfonamide Allergy Rash Verified 10/13/17 21:53 Antibiotics) adhesive tape AdvReac Rash Verified 10/13/17 21:53 Review of Systems - Constitutional Constitutional: reports: Fatigue, Weakness, Poor appetite, Weight loss (reports about 50 pound weight loss) - Eyes Eyes: reports: Vision loss, Corrective lenses - Ears, Nose & Throat Ears, Nose & Throat: reports: Hearing loss, Tinnitus - Cardiovascular Cardiovascular: reports: Palpitations, Edema, Exertional dyspnea, Decr. exercise tolerance - Respiratory Respiratory: reports: SOB with exertion. denies: SOB at rest - Gastrointestinal Gastrointestinal: reports: Abdominal distention, Constipation, Diarrhea, Nausea, Bloating, Poor appetite, Early satiety - Genitourinary Genitourinary: reports: Frequency, Sexual dysfunction - Musculoskeletal Musculoskeletal: reports: Stiffness, Muscle weakness - Integumentary Integumentary: reports: Lesions (left back of calf-about one year one cm), Dryness - Neurological Neurological: reports: General weakness - Psychiatric Psychiatric: reports: Depression, Anxiety - Hematologic/Lymphatic Hematologic/Lymphatic: reports: Anemia, Blood clots, Recurrent infections - All Other Systems All Other Systems: reports: Reviewed and negative Physical Exam - Vital Signs Temperature: 97.1 C Pulse Rate: 77 Respiratory Rate: 18 O2 Saturation: 96 (ra @ rest) Blood Pressure: 122/72 - Physical Exam General Appearance: positive: No acute distress Eyes Bilateral: positive: Normal inspection ENT: positive: No signs of dehydration Neck: positive: No JVD, Trachea midline Cardiovascular: positive: Regular rate & rhythm Respiratory: positive: Diminished in bases. negative: Wheezes, Rales, Rhonchi Abdomen: positive: Soft, Nml bowel sounds, Distended, Taut, Other (palpated nodularity through abd. wall) Skin: positive: Pallor, Dryness, Other (1 cm flat lesion on back of left calf; non tender). negative: Jaundice Extremities: positive: Pedal edema (trace pedal edema) Neurologic/Psychiatric: positive: Oriented x3, Mood/affect nml, Weakness, Flat affect Palliative Care - POLST Patient has POLST: Yes POLST Status: DNR, Selective Treatment Pain: Comment Tiredness/Fatigue: Severe (7-10) (This appear in his description to have activity intolerance, does spend quite a bit of time in the recliner. He is still ambulatory but finds himself tiring quite easily.) Drowsiness/Sedation: Severe (7-10) Nausea: Severe (7-10) Depression: Mild (1-3) Anxiety: Mild (1-3) Anorexia: None Sleep: Variable sleep pattern Constipation: Yes, Unmanaged, Intermittent constipation, Comment (Patient describes having "constipation" in the morning, this is quite distressful for him, does have a lot of rectal pressure until this is released which then by mid afternoon is loose and watery. Unable to link if related to eating and enzymes. Does use MiraLAX on a nightly basis, and tincture of opium if he needs to travel. He does feel somewhat like a prisoner because of the urgency of his bowel movements) Feelings of wellbeing/Perceived Quality of Life: Fair, Worsening Performance Status: Patient is able to ambulate through house, still managing his own ADLs, has not used an assistive device yet. He has not had any falls. He reports he is quite careful and intentional. - Palliative Care Discussion: Discussion regarding patient's goals was integrated through the visit, patient does understand the seriousness of his illness, is hoping to be that 3-4% that survive, though is not realistic in his presentation as far as his questions and planning forward into the future. He does feel he has lived a good life, he is thankful for his family, he has no regrets. His priority is spending time with family, and drilling down he would like to avoid hospitalization. He does have a difficult time talking about the future, reports he has a "warrior attitude" But is willing to balance the conversation and addressing the concerns expressed by his and daughter. Their experience with hospice has been with her father and mother, both were on extended periods of time and had chronic illnesses. We did discuss at length his advanced care planning. He does have a document, though it is not really helpful as far as looking at where he currently is in his current goals. We did fill out the [facility], as a DNAR/allow natural , with selected treatments. Patient is still wanting to treat reversible conditions, he does not want to in the hospital and would like to be at home. This was a door to open and talk about hospice and hospice services into the future. Patient feels currently his quality of life is acceptable, though he does have significant symptom burden does not perceive this at a place where he would not continue with treatment. He remains hoping for the best, though was disappointed there were no further options for him in the clinical trials department. He does trust and appreciate his relationship with his current oncologist Dr. Sun. And is willing to have palliative care to provide ongoing support. Results - Lab Results Lab results reviewed: Yes Impression and Recommendations - Palliative Care Impression: This is a kimberly 67-year-old gentleman who has pancreatic cancer with extensive disease to the liver, lungs, and peritoneum. He does have recurrent ascites, weight loss, anorexia, and multiple GI symptoms. Patient continues an active treatment, and still perceives he is at a place where his current quality of life is acceptable. Palliative care to continue provide support and anticipatory guidance. Recommendations/Counseling Done: 1. Diarrhea, this is multifactorial in origin. Patient is using his Creon and enzymes, using MiraLAX late in the evening, secondary to concerns of constipation in the a.m. Patient currently fairly attached to his current regimen, did suggest taking the MiraLAX early in the evening, did discuss controlling diarrhea more aggressively if having greater than 2-3 diarrhea watery stools a day secondary to fluid and potassium loss. We will continue to monitor, and adjust as patient allows. 2. Ascites. Patient has been receiving fairly large volume shifts with his paracentesis. Has had suggested Pleurx catheter, he does find currently the every 2 week paracentesis acceptable. We did discuss in the context of future management of taking off less volume more frequently may improve his comfort. He will continue to weigh benefits and burdens into the future. This would be a good intervention in the context of patient were transitioning to more of a comfort mode, has been able to do this in the home setting and decrease trips over town. 3. Pancreatic cancer with metastases to the liver lung and peritoneal carcinomatosis. Patient currently perceives he is tolerating FOLFOX, does understand the goal is for quality and quantity, not curative in intent. At this point in time does feel like it is "holding the disease at bay". Counseling provided regarding weighing benefits and burdens in the context of quality of life, patient is hoping to avoid further hospitalizations in any acute complications. [facility] had recommended MSI testing in consult, family concerned if this was ordered, contact made to Dr. Sun with request. 4. Advanced care planning. Counseling done regarding [facility], defining patient's goals of care, sitting up rapport, addressing family concerns. Patient does have long-term care insurance, though does have a 90 day waiting pe riod, currently does not meet criteria is does not need support for personal care issues. Daughter would like her father to pursue genetic counseling, Dr. Sun will facilitate with [facility]. Time Spent: 75 minutes with greater than 50% of this done in counseling Regarding symptom management, continuum of care, anticipatory guidance and coordination of care with oncology.
== END 2018-03-22 18:57 | disposition home or self-care (01) ==
LOC: PC 18:56
PROVIDERS: ATTEND Nurse Practitioner Adult Health
DX: Z51.5 Encounter for palliative care (principal); R19.7 Diarrhea, unspecified; K59.00 Constipation, unspecified; R18.8 Other ascites; C25.9 Malignant neoplasm of pancreas, unspecified; C78.7 Secondary malignant neoplasm of liver and intrahepatic bile duct; C78.00 Secondary malignant neoplasm of unspecified lung; C78.6 Secondary malignant neoplasm of retroperitoneum and peritoneum; Z79.899 Other long term (current) drug therapy; R53.83 Other fatigue; R14.0 Abdominal distension (gaseous); Z66 Do not resuscitate
CPT/HCPCS: 99345

== ENCOUNTER 2018-03-23 13:46 | Outpatient (CLI) | payer MEDICARE, BC ==
[2018-03-23 18:08] LABS: BASOPHILS # (AUTO) 0.1 10^3/uL (0.0-0.1); BASOPHILS % (AUTO) 1.3 %; EOSINOPHILS % (AUTO) 0.9 %; HGB - HEMOGLOBIN 11.7 g/dL (14.0-18.0); LYMPHOCYTES # (AUTO) 0.6 10^3/uL (1.5-3.5); LYMPHOCYTES % (AUTO) 15.9 %; MEAN CORPUSCULAR HEMOGLOBIN 28.1 pg (27.0-31.0); MEAN CORPUSCULAR HGB CONC 33.9 g/dL (32.0-36.0); MEAN CORPUSCULAR VOLUME 82.9 fL (80.0-94.0); MEAN PLATELET VOLUME 7.3 fL (7.4-11.4); MONOCYTES % (AUTO) 26.5 %; NEUTROPHILS # (AUTO) 2.1 10^3/uL (1.5-6.6); NEUTROPHILS % (AUTO) 55.4 %; PLT - PLATELET COUNT 295 10^3/uL (130-450); RED BLOOD COUNT 4.16 10^6/uL (4.70-6.10); RED CELL DISTRIBUTION WIDTH 18.5 % (12.0-15.0); WHITE BLOOD COUNT 3.9 x10^3/uL (4.8-10.8)
[2018-03-23 18:31] LABS: ALBUMIN 2.2 g/dL (3.2-5.5); ALBUMIN/GLOBULIN RATIO 0.5 (1.0-2.2); BILIRUBIN,TOTAL 0.5 mg/dL (0.2-1.0); CALCIUM 8.7 mg/dL (8.5-10.3); CREATININE 0.9 mg/dL (0.6-1.2); TOTAL PROTEIN 6.9 g/dL (6.7-8.2)
== END 2018-03-23 13:47 | disposition home or self-care (01) ==
LOC: LAB.F 13:46
PROVIDERS: ATTEND Internal Medicine Hematology & Oncology
DX: C25.0 Malignant neoplasm of head of pancreas (principal); I26.09 Other pulmonary embolism with acute cor pulmonale
CPT/HCPCS: 36415; 80053; 85025; 86301

== ENCOUNTER 2018-03-29 15:30 | Outpatient (CLI) | payer MEDICARE, BC ==
--- NOTE | 2018-03-29 20:43 | CONSULTATION NOTE ---
Palliative Care Follow Up - Referral Referring Provider: Sahra YOUNG Time of Visit: [id number] Referral setting: Home Referral Reason: Pancreatic Cancer - Information Sources Records reviewed: Previous records reviewed History/Review of Systems obtained from: Patient, Family (sandra present for visit) Exam limitations: No limitations - History of Present Illness Update Brief HPI Update: This is a 67-year-old gentleman with stage IV pancreatic cancer, with known liver metastases, celiac and retroperitoneal adenopathy, peritoneal carcinomatosis as well as recurrent ascites and lung metastases. He also has a history of PEs and is on enoxaparin. He currently is on palliative M FOLFOX6, as receives 7 cycles, with his last treatment last Thursday through Thursday. He also had a paracentesis on Thursday, with removal of 6-1/2 L, though this did cause him quite a bit of discomfort. He is to receive scans after cycle #8, he remains quite frail, cachectic, but still fairly functional. He is feeling quite poorly after his chemotherapy, with decreased appetite, increased stomach pain, and intermittent diarrhea. He has also had some recurrent heartburn. Palliative care to provide support for pain and symptom management and psychosocial issues, as well as anticipatory guidance and coordination of care Social History - Living Situation Living arrangement: At home Living Situation: With spouse/s.o. Support System: Patient's Sandra, provides most of the support. Patient currently is independent in his ADLs. Elan has a son, the 2 grandchildren, whom he enjoys immensely have been visiting this afternoon, he has a daughter in [place]. Spending time with family is important to him Medications/Allergies - Medications Home Medications: Ambulatory Orders Medication Instructions Recorded Confirmed Metoprolol Succinate 25 tab PO DAILY 07/29/17 03/29/18 Ranitidine HCl [Zantac] 1 tab PO BID 07/29/17 03/29/18 Ondansetron Odt [Zofran] 4 mg TL Q6H PRN #14 tablet 10/14/17 03/29/18 Enoxaparin [Lovenox] 120 mg SL DAILY 03/22/18 03/29/18 Furosemide 20 mg PO DAILY 03/22/18 03/29/18 Lactobacillus Acidophilus 1 cap PO DAILY 03/22/18 03/29/18 [Probiotic Acidophilus] Lipase/Protease/Amylase [Creon Dr 1 cap PO TID 03/22/18 03/29/18 3,000 Units Capsule] Opium Tincture 0.4 ml PO Q4HR PRN 03/22/18 03/29/18 Polyethylene Glycol 3350 [Miralax] 17 gm PO DAILY 03/22/18 03/29/18 Prochlorperazine Maleate 10 mg PO Q6HR PRN 03/22/18 03/29/18 [Compazine] Spironolactone 50 mg PO DAILY 03/22/18 03/29/18 Morphine Sulfate [Morphine Sulf 5 - 10 mg PO Q3HR PRN 03/29/18 03/29/18 Oral (Roxanol)] Senna [Senokot] 8.6 mg PO BID PRN 03/29/18 03/29/18 - Allergies Allergies/Adverse Reactions: Allergies Allergy/AdvReac Type Severity Reaction Status Date / Time Sulfa (Sulfonamide Allergy Rash Verified 10/13/17 21:53 Antibiotics) adhesive tape AdvReac Rash Verified 10/13/17 21:53 Review of Systems - Constitutional Constitutional: reports: Fatigue, Weakness, Poor appetite, Weight loss. denies: Fever, Chills - Ears, Nose & Throat Ears, Nose & Throat: reports: Dry mouth - Cardiovascular Cardiovascular: reports: Edema, Exertional dyspnea, Decr. exercise tolerance - Respiratory Respiratory: reports: Cough, Sputum production, SOB with exertion - Gastrointestinal Gastrointestinal: reports: Abdominal distention, Constipation, Diarrhea, Reflux/heartburn, Bloating, Poor appetite, Early satiety - Genitourinary Genitourinary: reports: Frequency - Musculoskeletal Musculoskeletal: reports: Stiffness, Muscle weakness - Integumentary Integumentary: reports: Dryness - Neurological Neurological: reports: General weakness - Hematologic/Lymphatic Hematologic/Lymphatic: reports: Anemia (hgb 11.7), Blood clots (hx of PEs on enoxaparin) - All Other Systems All Other Systems: reports: Reviewed and negative Physical Exam - Vital Signs Temperature: 96.9 C Pulse Rate: 77 Respiratory Rate: 18 O2 Saturation: 97 (ra @ rest) Blood Pressure: 92/62 (right arm; 100/62 left) - Physical Exam General Appearance: positive: Mild distress Eyes Bilateral: positive: Normal inspection ENT: positive: No signs of dehydration Neck: positive: No JVD, Trachea midline Cardiovascular: positive: Regular rate & rhythm Respiratory: positive: Breath sounds nml Abdomen: positive: Soft, Nml bowel sounds, Distended Skin: positive: Pallor, Dryness Extremities: positive: Full ROM, No pedal edema Neurologic/Psychiatric: positive: Oriented x3, Weakness, Depressed mood/affect, Flat affect Palliative Care - POLST Patient has POLST: Yes POLST Status: DNR, Selective Treatment Pain: Pain unchanged, Location (Patient does not perceive his discomfort as pain, is mostly his abdominal pressure. After paracentesis did have increased discomfort, had taken ibuprofen 2. THis mostly manifested in the upper abdomen as a pulling sensation.) Tiredness/Fatigue: Severe (7-10) (worse after chemotherapyp) Drowsiness/Sedation: Moderate (4-6) Nausea: Mild (1-3) Depression: Mild (1-3) Anxiety: None Dyspnea: Mild (1-3) Anorexia: Moderate (4-6) Sleep: Variable sleep pattern (up at night to void) Constipation: Yes, Intermittent constipation Performance Status: Patient able to attend his own ADLs with only occasional assistance. I would put him at a PPS of 60%. Does report less energy and activity intolerance his first few days after chemotherapy - Palliative Care Discussion: Patient reports not feeling very well today, did not have any follow-up questions or concerns after last week's conversations. Continues to take things as they come, patient appears quite pragmatic denies any significant depression or anxiety. Did have a chance to speak with the separately today, she is in that waiting. Surprised that thankful he has continued to do well, though does see that he is declining. She does have friends she talks to, as well as getting regular massage, is trying to get to healing circles. Did offer medical palliative care social security benefits interviewer for support, she will let me know if this would be of help Results - Lab Results Lab results reviewed: Yes Lab and Imaging Results: 911 WBC 3.9; hemoglobin 11.7; hematocrit 34.5; sodium 133; potassium 4.3; GFR 84 total protein 6.9; albumin 2.2 Impression and Recommendations - Palliative Care Impression: This is a 67-year-old gentleman with pancreatic stage IV with metastases to the liver, lungs, and peritoneum. His moderate symptom burden with recurrent ascites, weight loss, anorexia, multiple GI symptoms. Patient continues on active treatment, still perceives that it place her current quality of life is acceptable. Palliative care to continue to provide support and anticipatory guidance Recommendations/Counseling Done: 1. Diarrhea, this is multifactorial in origin. Patient has not had greater than 2 loose stools, he is titrating with MiraLAX for his constipation, has not used Imodium or tincture of opium. He is quite attached to his current regimen, continue to provide education and support. 2. Ascites. Patient was much more comfortable with his recent paracentesis, did not feel he was quite ready as far as pressure, again discussed smaller volumes more frequently might help with comfort. He is somewhat hesitant to have yet another procedure, and limitation. Would like referral to move forward for at least a consult, will coordinate this with upcoming appointments. 3. GERD. Most likely this is adding to his nausea as well, patient has not tolerated PPIs in the past, though is unable to really identify symptoms associated with this. Will go ahead and increase his Zantac to twice daily. 4. Pancreatic cancer stage IV. Patient currently perceives he is tolerating the FOLFOX6, will continue. Did confirm MSI testing has been sent out. exploring alternative treatments, they do have a pending appointment with the andre russo at [place], encouraged her to talk with her for questions she would be a good resource. 5. Abdominal pain. Did provide prescription for morphine sulfate 20 mg/ml , with instruction to start with 5 mg every 3 hours as needed discomfort. Patient has tolerated the tincture of opium without side effects. Discussed can use higher dosing if ineffective, but would recommend the morphine over ibuprofen given his lovenox, GERD, and abdominal discomfort.Also discussed in the context of having the morphine available as a "tool", in the event patient has need for more aggressive pain management because of side effects of disease. Provided instruction and prescription for senna 8.6 mg tabs to use for constipation if initiate morphine, counseling provided versus senna T for ability to dose. 6. Advanced care planning. Patient does have LADONNA ST in place, had spoken with Dr. Sun regarding genetic counseling, unclear if that referral is been made. Continue to set up rapport, and explore goals and concerns with patient and . Time Spent: 45 minutes with getting 50% of this done in counseling regarding pain and symptom management, anticipatory guidance, coordination of care regarding setting up appointment for consultation for Dee.
== END 2018-03-29 15:31 | disposition home or self-care (01) ==
LOC: PC 15:30
PROVIDERS: ATTEND Nurse Practitioner Adult Health
DX: Z51.5 Encounter for palliative care (principal); R19.7 Diarrhea, unspecified; R18.8 Other ascites; K21.9 Gastro-esophageal reflux disease without esophagitis; C25.9 Malignant neoplasm of pancreas, unspecified; C78.7 Secondary malignant neoplasm of liver and intrahepatic bile duct; C78.00 Secondary malignant neoplasm of unspecified lung; C78.6 Secondary malignant neoplasm of retroperitoneum and peritoneum; M62.81 Muscle weakness (generalized); K59.00 Constipation, unspecified; R63.0 Anorexia; Z66 Do not resuscitate
CPT/HCPCS: 99349

== ENCOUNTER 2018-04-05 18:34 | Outpatient (CLI) | payer MEDICARE, BC ==
--- NOTE | 2018-04-05 18:51 | CONSULTATION NOTE ---
Palliative Care Follow Up - Referral Referring Provider: Dr. Simone Sun Time of Visit: [id number] Referral setting: Home (It is a taxing considerable effort for the patient leave the home, to facilitate family counseling and treatment plan for symptom management) Referral Reason: Pancreatic cancer - Information Sources Records reviewed: Previous records reviewed History/Review of Systems obtained from: Patient, Family ( Sandra at home visit) Exam limitations: No limitations - History of Present Illness Update Brief HPI Update: This is a kimberly 67-year-old gentleman with stage IV pancreatic cancer with known liver metastases, celiac and retroperitoneal adenopathy, peritoneal carcinomatosis, recurrent ascites, and lung metastases. He also has a history of PE is on enoxaparin. He is currently on palliative and FOLFOX6, has received 7 cycles, he is due for his eighth, with restaging scans after this. [facility] ward continues to be quite frail, having difficulty with GI side effects, with alternating diarrhea and constipation, and intermittent nausea. He continues to lose weight, have muscle wasting, continues with ascites, though does not have lower extremity edema. He has had increased abdominal discomfort most of it in the right upper quadrant and abdominal area, has not taken anything for this so it has interfered with sleep. He reports he is having a better day today, but does observe he has had more bad days than good days with this last regimen. Palliative care to provide support for pain and symptom management, psychosocial issues, anticipatory guidance and coordination of care. Social History - Living Situation Living arrangement: At home Living Situation: With spouse/s.o. Support System: He has a very supportive family, his has taken a leave of absence from work, he has a daughter who is a nurse who lives in [place], and his son and his family nearby. Family is a priority for patient as far as making meaning. Medications/Allergies - Medications Home Medications: Ambulatory Orders Medication Instructions Recorded Confirmed Metoprolol Succinate 25 tab PO DAILY 07/29/17 03/29/18 Ranitidine HCl [Zantac] 1 tab PO BID 07/29/17 03/29/18 Ondansetron Odt [Zofran] 4 mg TL Q6H PRN #14 tablet 10/14/17 03/29/18 Enoxaparin [Lovenox] 120 mg SL DAILY 03/22/18 03/29/18 Furosemide 20 mg PO DAILY 03/22/18 03/29/18 Lactobacillus Acidophilus 1 cap PO DAILY 03/22/18 03/29/18 [Probiotic Acidophilus] Lipase/Protease/Amylase [Creon Dr 1 cap PO TID 03/22/18 03/29/18 3,000 Units Capsule] Opium Tincture 0.4 ml PO Q4HR PRN 03/22/18 03/29/18 Polyethylene Glycol 3350 [Miralax] 17 gm PO DAILY 03/22/18 03/29/18 Prochlorperazine Maleate 10 mg PO Q6HR PRN 03/22/18 03/29/18 [Compazine] Spironolactone 50 mg PO DAILY 03/22/18 03/29/18 Morphine Sulfate [Morphine Sulf 5 - 10 mg PO Q3HR PRN 03/29/18 03/29/18 Oral (Roxanol)] Senna [Senokot] 8.6 mg PO BID PRN 03/29/18 03/29/18 - Allergies Allergies/Adverse Reactions: Allergies Allergy/AdvReac Type Severity Reaction Status Date / Time Sulfa (Sulfonamide Allergy Rash Verified 10/13/17 21:53 Antibiotics) adhesive tape AdvReac Rash Verified 10/13/17 21:53 Review of Systems - Constitutional Constitutional: reports: Fatigue, Poor appetite, Weight loss (180 from 250 pounds at baseline) - Ears, Nose & Throat Ears, Nose & Throat: reports: Hoarseness, Dry mouth, Other (ear congestion relates it to mucous/cough) - Cardiovascular Cardiovascular: reports: Exertional dyspnea, Decr. 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 had bx positive; to have shaved off 04/20) - Neurological Neurological: reports: General weakness, Other (increased numbness/neuropathy particularly in face with cold more persistant this time) - Psychiatric Psychiatric: reports: Depression - Endocrine Endocrine: reports: Intolerance to cold - Hematologic/Lymphatic Hematologic/Lymphatic: reports: Anemia - All Other Systems All Other Systems: reports: Reviewed and negative Physical Exam - Vital Signs Temperature: 97.1 C Pulse Rate: 74 Respiratory Rate: 18 O2 Saturation: 94 (ra @ rest) Blood Pressure: 112/64 - Physical Exam General Appearance: positive: Mild distress Eyes Bilateral: positive: No scleral icterus ENT: positive: Dry mucous membranes Neck: positive: No JVD, Trachea midline Cardiovascular: positive: Regular rate & rhythm Respiratory: positive: Diminished in bases. negative: Wheezes, Rales, Rhonchi Abdomen: positive: Abnml bowel sounds, Distended, Other (palpated small "lumps" throughout abdomen) Skin: positive: Pallor (sallow in color), Dryness. negative: Jaundice Extremities: positive: No pedal edema, Other (muscle wasting) Neurologic/Psychiatric: positive: Oriented x3, Weakness, Depressed mood/affect Palliative Care - POLST Patient has POLST: Yes POLST Status: DNR, Selective Treatment Pain: Pain worsening, Location (right upper quadrant; fluctuates had not tried MS 5 mg; reviewed use and indication again) Tiredness/Fatigue: Severe (7-10) Drowsiness/Sedation: Moderate (4-6) Nausea: Moderate (4-6) Depression: Mild (1-3) Anxiety: Mild (1-3) Anorexia: Severe (7-10), Weight loss Sleep: Variable sleep pattern Performance Status: Patient continues to move slower, more difficult getting sitting to standing, appears quite weak and shaky. Is not using any assistive devices. Is still able to attend to his own ADLs though much more difficult for him. - Palliative Care Discussion: Patient continues to remain hopeful, he wants to be "1 of the 3%", but able to realistically reflect on the changes over the last couple weeks. He is having more bad days than good, unclear in his mind whether it is his chemotherapy or his disease, confirmed it most likely is both. He currently still perceives his quality of life as such to move forward with treatment, his goals are to focus on quality and quantity as long as he perceives benefit. Very much prioritize his family, did have a grandson over today, reports it was "a good day" Had a chance to speak with the , she to is expressing concerns of patient's ongoing decline, with some anticipatory grieving, and continues to provide support to patient. Impression and Recommendations - Palliative Care Impression: This is a 67-year-old gentleman with stage IV pancreatic cancer with metastases to the lung, livers, and peritoneum. He has had a more difficult time with this last round of chemotherapy, suspect it is also related to disease progression, and presents with moderate to high symptom burden. Palliative care to continue provide support and anticipatory guidance. Recommendations/Counseling Done: 1. Diarrhea, this is multifactorial in origin. Patient continues to take MiraLAX as he perceives he has rectal pressure and constipation in the a.m., has not used Imodium or tincture of opium. Discussed adding cream of rice to slow down his stool, counseling regarding foods to avoid, patient remains quite attached to his current regimen. 2. Progressive weight loss. Patient does have alternative taste changes, ongoing GI distress, difficulty finding foods that do not add to his distress. Counseling regarding the need to add some more protein, and strategies to do this. 3. Abdominal pain. Patient did have increased discomfort, did not trial the morphine 5 mg, had "thought about it". Counseling reviewed regarding use of morphine for pain relief, encouraged to try a low dose, reminded him as a tool in his toolbox. 4. Pancreatic cancer stage IV. Has pending appointment with the economics faculty member at [employer] this Thursday, questions addressed regarding acupuncture. We will go ahead and send lab order for labs tomorrow, unable to locate original sheet. 5. Ascites.Patient did receive a phone call on scheduling for Pleurx consultation, remains ambivalent can see the advantages. Patient with multiple appointments and feeling somewhat overwhelmed, will schedule and he is in town on 04/20. . Advanced care planning. Patient's goals are to continue with chemotherapy in hopes to improve his quality and quantity of life, is demonstrating some increased fatigue, higher symptom burden, functional decline, and weight loss. We will continue to provide palliative care support and availability to assist with processing and adjustment to illness, anticipatory guidance, and assist with transition points as indicated Time Spent: 45 minutes with getting 50% of this done in counseling regarding pain and symptom management, coordination of care, and anticipatory guidance
== END 2018-04-05 18:35 | disposition home or self-care (01) ==
LOC: PC 18:34
PROVIDERS: ATTEND Nurse Practitioner Adult Health
DX: Z51.5 Encounter for palliative care (principal); K52.1 Toxic gastroenteritis and colitis; R63.4 Abnormal weight loss; G89.3 Neoplasm related pain (acute) (chronic); C25.9 Malignant neoplasm of pancreas, unspecified; C78.7 Secondary malignant neoplasm of liver and intrahepatic bile duct; C78.00 Secondary malignant neoplasm of unspecified lung; C78.6 Secondary malignant neoplasm of retroperitoneum and peritoneum; R18.0 Malignant ascites; K59.03 Drug induced constipation; T45.1X5A Adverse effect of antineoplastic and immunosuppressive drugs, initial encounter; Z86.711 Personal history of pulmonary embolism; Z79.01 Long term (current) use of anticoagulants; Z79.899 Other long term (current) drug therapy; Z66 Do not resuscitate
CPT/HCPCS: 99349

== ENCOUNTER 2018-04-06 13:57 | Outpatient (CLI) | payer MEDICARE, BC ==
[2018-04-06 17:49] LABS: BASOPHILS % (AUTO) 1.2 %; EOSINOPHILS % (AUTO) 1.1 %; HGB - HEMOGLOBIN 11.3 g/dL (14.0-18.0); LYMPHOCYTES # (AUTO) 0.5 10^3/uL (1.5-3.5); LYMPHOCYTES % (AUTO) 16.1 %; MEAN CORPUSCULAR HEMOGLOBIN 27.6 pg (27.0-31.0); MEAN CORPUSCULAR VOLUME 83.8 fL (80.0-94.0); MEAN PLATELET VOLUME 7.3 fL (7.4-11.4); MONOCYTES # (AUTO) 0.6 10^3/uL (0.0-1.0); MONOCYTES % (AUTO) 21.6 %; NEUTROPHILS # (AUTO) 1.8 10^3/uL (1.5-6.6); PLT - PLATELET COUNT 279 10^3/uL (130-450); RED BLOOD COUNT 4.11 10^6/uL (4.70-6.10); RED CELL DISTRIBUTION WIDTH 18.5 % (12.0-15.0)
[2018-04-06 18:16] LABS: ALBUMIN 2.2 g/dL (3.2-5.5); ALBUMIN/GLOBULIN RATIO 0.5 (1.0-2.2); BILIRUBIN,TOTAL 0.7 mg/dL (0.2-1.0); CALCIUM 8.7 mg/dL (8.5-10.3); CREATININE 0.8 mg/dL (0.6-1.2); TOTAL PROTEIN 6.8 g/dL (6.7-8.2)
== END 2018-04-06 13:58 | disposition home or self-care (01) ==
LOC: LAB.F 13:57
PROVIDERS: ATTEND Internal Medicine Hematology & Oncology
DX: C25.0 Malignant neoplasm of head of pancreas (principal); Z79.899 Other long term (current) drug therapy
CPT/HCPCS: 36415; 80053; 85025; 86301

== ENCOUNTER 2018-04-19 18:10 | Outpatient (CLI) | payer MEDICARE, BC ==
--- NOTE | 2018-04-19 21:13 | CONSULTATION NOTE ---
Palliative Care Follow Up - Referral Referring Provider: Dr. Simone Sun/Sahra [facility] Time of Visit: [phone] Referral setting: Home Referral Reason: Pancreatic Cancer - Information Sources Records reviewed: Previous records reviewed History/Review of Systems obtained from: Patient, Family ( Sandra) Exam limitations: Clinical condition - History of Present Illness Update Brief HPI Update: This is a kimberly 67-year-old gentleman with stage IV pancreatic cancer with known liver metastases, celiac and retroperitoneal adenopathy, peritoneal carcinomatosis, recurrent ascites, and lung metastases. He also has a history of PE and is on enoxaparin. He has received 8 cycles of FolFox-6 with restaging scans. Per report, scan that showed no progression of pancreatic tumor, and resolution of 1 of the lung nodules. Patient though does present with ongoing and recurrent ascites, did have Aspira catheter placed this last Thursday, at that time removed 4 liters, did have daughter Delia, who is RN, drain yesterday with dressing change about 1.5 liters. Goal to have drained every 2-3 days, to improve comfort. Patient reports he did feel fairly good over the weekend, they had friends visiting, had to use the tincture of opium as well as trialed some morphine with good sleep. He did go out today, though to a birthday libertarian, had severe diarrhea, gas, and discomfort again. Patient continues to struggle with alternating constipation and diarrhea, anorexia, appears more cachectic in temporal wasting, upper and lower extremity wasting. He has no lower extremity edema, and has discontinued diuretics. He continues have fluctuating good and bad days, but overall has had ongoing functional decline. Social History - Living Situation Living arrangement: At home Living Situation: With spouse/s.o. 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 [place], he has 2 grandsons which are his priority as far as a source of christopher. He does have a daughter Delia RN, who comes on a regular basis, she will be helping with the aspire catheter, is coming tomorrow to assist mother's training to be able to drain on a regular basis. He does not currently have home health, will continue to evaluate if this will be of assistance in future to manage Aspira. Medications/Allergies - Medications Home Medications: Ambulatory Orders Medication Instructions Recorded Confirmed Metoprolol Succinate 25 tab PO DAILY 07/29/17 04/20/18 Ranitidine HCl [Zantac] 1 tab PO BID 07/29/17 04/20/18 Ondansetron Odt [Zofran] 4 mg TL Q6H PRN #14 tablet 10/14/17 04/20/18 Enoxaparin [Lovenox] 120 mg SL DAILY 03/22/18 04/20/18 Lactobacillus Acidophilus 1 cap PO DAILY 03/22/18 04/20/18 [Probiotic Acidophilus] Lipase/Protease/Amylase [Creon Dr 1 cap PO TID 03/22/18 04/20/18 3,000 Units Capsule] Opium Tincture 0.4 ml PO Q4HR PRN 03/22/18 04/20/18 Polyethylene Glycol 3350 [Miralax] 17 gm PO DAILY 03/22/18 04/20/18 Prochlorperazine Maleate 10 mg PO Q6HR PRN 03/22/18 04/20/18 [Compazine] Morphine Sulfate [Morphine Sulf 5 - 10 mg PO Q3HR PRN 03/29/18 04/20/18 Oral (Roxanol)] Senna [Senokot] 8.6 mg PO BID PRN 03/29/18 04/20/18 - Allergies Allergies/Adverse Reactions: Allergies Allergy/AdvReac Type Severity Reaction Status Date / Time Sulfa (Sulfonamide Allergy Rash Verified 10/13/17 21:53 Antibiotics) adhesive tape AdvReac Rash Verified 10/13/17 21:53 Review of Systems - Constitutional Constitutional: reports: Fatigue, Poor appetite, Weight loss. denies: Fever, Chills - Ears, Nose & Throat Ears, Nose & Throat: reports: Dry mouth - Cardiovascular Cardiovascular: reports: Lightheadedness, Exertional dyspnea, Decr. exercise tolerance - Respiratory Respiratory: reports: SOB with exertion. denies: SOB at rest - Gastrointestinal Gastrointestinal: reports: Abdominal pain, Abdominal distention, Constipation, Diarrhea (reports had a couple of stools that had "milky" appearance; unclear if chalky stool or undigested food/fat; will follow up on labs), Reflux/heartburn, Bloating, Poor appetite, Early satiety - Genitourinary Genitourinary: reports: Frequency - Musculoskeletal Musculoskeletal: reports: Stiffness, Muscle weakness - Integumentary Integumentary: reports: Other (dressing intact for Apira catheter left lower quadrant) - Neurological Neurological: reports: General weakness - Psychiatric Psychiatric: reports: Depression - Endocrine Endocrine: reports: Intolerance to cold - Hematologic/Lymphatic Hematologic/Lymphatic: reports: Anemia, Blood clots (hx PE on enoxaparin). denies: Recurrent infections - All Other Systems All Other Systems: reports: Reviewed and negative Physical Exam - Vital Signs Temperature: 97.6 C Pulse Rate: 74 Respiratory Rate: 16 O2 Saturation: 94 (ra @ rest) Blood Pressure: 132/82 (laying) - Physical Exam General Appearance: positive: Moderate distress Eyes Bilateral: positive: Normal inspection, No scleral icterus ENT: negative: Oral lesions Neck: positive: No JVD, Trachea midline Cardiovascular: positive: Regular rate & rhythm Respiratory: positive: Breath sounds nml Abdomen: positive: Tenderness, Distended, Other (increase palpation of areas of firmness vs ascites of the carcinomatosis;) Skin: positive: Pallor, Other (dressing intact exit site not observed) Neurologic/Psychiatric: positive: Oriented x3, Weakness, Depressed mood/affect, Flat affect Palliative Care - POLST Patient has POLST: Yes POLST Status: DNR, Selective Treatment Pain: Pain worsening, Location (Patient does not describe his discomfort as pain, but does have increased feelings of discomfort through lower abdomen, exacerbated by gas and abdominal pressure. Did trial morphine 5 mg at bedtime with good sleep and relief. Patient continues to struggle with diarrhea versus constipation, does not get much relief from his marijuana products "knocks him out", discussed seeking lower THC content) Tiredness/Fatigue: Severe (7-10) Drowsiness/Sedation: Moderate (4-6) Nausea: Mild (1-3) Depression: Moderate (4-6) (Is expressing some sadness today regarding grief and loss) Anxiety: Mild (1-3) Performance Status: Patient continues with fluctuating days, still fairly sedentary. Can walk short distances, but is getting weaker. Does spend more time resting on couch and in recliner. Patient still able to attend to her own ADLs, would put him at a PPS of 60% - Palliative Care Discussion: Patient did share feelings of grief and loss today, she was seen some very good friends of the weekend, feeling somewhat tearful recognizing that these are most likely final goodbyes. Did spend some time with addressing questions regarding anticipatory guidance, concern for patient's ongoing decline, plans for the future including increasing equipment needs, care needs in the home, and her own feelings of anticipatory grief and loss too. Impression and Recommendations - Palliative Care Impression: This is a 67-year-old gentleman with stage IV pancreatic cancer with metastases to the liver, lung, and peritoneum. He has had Aspire catheter placed for ascitic drainage, continues have fluctuating good and bad days, and currently scheduled to continue with 4 more cycles of treatment with restaging scans at that point in time. Palliative care to continue provide support for pain and symptom management and anticipatory guidance. Recommendations/Counseling Done: 1. Abdominal discomfort. This is multifactorial in origin, including recurrent and more progressive ascites. Patient has had Aspira catheter placed with goal to have more frequent drainage of smaller amounts. Daughter Delia is an RN, is assisting in learning how to manage. Did offer home health if needed, suspect they will be able to manage independently. Did encourage keep catheter outside of dressing to be able to drain more frequently. Patient did get relief with trial of morphine 5 mg, encouraged to try more consistently, particularly at bedtime, but counseling provided regarding also as a tool to use on a regular scheduled basis 2-3 times a day. Patient is quite hesitant regarding his al ternating constipation and diarrhea, encouraged to use senna if initiate morphine to be able to balance it out. 2. Pancreatic cancer stage IV. Patient is continue with active treatment, plan is for 4 more cycles and then restaging scan. Patient continues to decline in functional status, with progressive weight loss, and increased symptom burden.Will obtain oncology note and scans. On physical exam, patient does show increased signs of carcinomatosis and palpation to abdomen, also concern if patient may developing obstructive symptoms with episode of "chalky" stools. Is due for labs tomorrow, will check liver enzymes. 3. Diarrhea, this is multifactorial in origin. Patient continues to struggle with balancing constipation and diarrhea. Patient's increased perception of rectal pressure increases his abdominal discomfort. Patient titrating his MiraLAX, did encourage could add senna if needed if using opium or morphine more frequently. 4. Advanced care planning. Patient's goals are to continue with chemotherapy, will continue to provide palliative care support for pain and symptom management and anticipatory guidance. Time Spent: 60 minutes with greater than 50% of this done in counseling regarding pain and symptom management, management of ascites, and anticipatory guidance.
== END 2018-04-19 18:11 | disposition home or self-care (01) ==
LOC: PC 18:10
PROVIDERS: ATTEND Nurse Practitioner Adult Health
DX: Z51.5 Encounter for palliative care (principal); C25.9 Malignant neoplasm of pancreas, unspecified; C78.7 Secondary malignant neoplasm of liver and intrahepatic bile duct; C78.6 Secondary malignant neoplasm of retroperitoneum and peritoneum; C78.00 Secondary malignant neoplasm of unspecified lung; R18.0 Malignant ascites; R19.7 Diarrhea, unspecified; K59.00 Constipation, unspecified; R64 Cachexia; Z86.711 Personal history of pulmonary embolism; Z79.01 Long term (current) use of anticoagulants; Z79.899 Other long term (current) drug therapy; Z79.891 Long term (current) use of opiate analgesic; Z66 Do not resuscitate
CPT/HCPCS: 99350

== ENCOUNTER 2018-04-26 16:15 | Outpatient (CLI) | payer MEDICARE, BC ==
--- NOTE | 2018-04-26 21:43 | CONSULTATION NOTE ---
Palliative Care Follow Up - Referral Referring Provider: Sahra YOUNG/Dr. Sun Time of Visit: [phone] Referral setting: Home Referral Reason: Pancreatic Cancer Stage IV, mets to liver, peritoneal carcinomatosis/ascite - Information Sources Records reviewed: Previous records reviewed History/Review of Systems obtained from: Patient, Family ( Sandra present for visit) Exam limitations: No limitations - History of Present Illness Update Brief HPI Update: This is a kimberly 67-year-old gentleman with stage IV pancreatic cancer with known liver metastases, celiac and retroperitoneal adenopathy, peritoneal carcinomatosis with recurrent ascites, and lung metastasis. He also has a history of PE and is on enoxaparin. Patient did have a aspire catheter placed, and is working with finding the right "formula" as far as draining for comfort. Patient continues to struggle fairly significantly with GI symptoms, of nausea, gas, discomfort, and diarrhea. He has fluctuating days, but is able to note he does better on days he uses the tincture of opium. He continues to lose weight, presents with temporal wasting, upper and lower extremity wasting as well. He does have a fairly large acetic abdomen, reports it feels about 50% full right now. He has no lower extremity edema, and has discontinued diuretics. Social History - Living Situation Living arrangement: At home Living Situation: With spouse/s.o. Support System: [place] they very much enjoy spending time with her grandchildren. His daughter Delia, is a nurse, and has been helping with the new aspire catheter with dressing changes and drainage. Patient does manage to most of his ADLs, his is quite supportive, but does perceive patient's ongoing decline with great sadness. Medications/Allergies - Medications Home Medications: Ambulatory Orders Medication Instructions Recorded Confirmed Metoprolol Succinate 25 tab PO DAILY 07/29/17 04/20/18 Ranitidine HCl [Zantac] 1 tab PO BID 07/29/17 04/20/18 Ondansetron Odt [Zofran] 4 mg TL Q6H PRN #14 tablet 10/14/17 04/20/18 Enoxaparin [Lovenox] 120 mg SL DAILY 03/22/18 04/20/18 Lactobacillus Acidophilus 1 cap PO DAILY 03/22/18 04/20/18 [Probiotic Acidophilus] Lipase/Protease/Amylase [Creon Dr 1 cap PO TID 03/22/18 04/20/18 3,000 Units Capsule] Opium Tincture 0.4 ml PO Q4HR PRN 03/22/18 04/20/18 Polyethylene Glycol 3350 [Miralax] 17 gm PO DAILY 03/22/18 04/20/18 Prochlorperazine Maleate 10 mg PO Q6HR PRN 03/22/18 04/20/18 [Compazine] Morphine Sulfate [Morphine Sulf 5 - 10 mg PO Q3HR PRN 03/29/18 04/20/18 Oral (Roxanol)] Senna [Senokot] 8.6 mg PO BID PRN 03/29/18 04/20/18 - Allergies Allergies/Adverse Reactions: Allergies Allergy/AdvReac Type Severity Reaction Status Date / Time Sulfa (Sulfonamide Allergy Rash Verified 10/13/17 21:53 Antibiotics) adhesive tape AdvReac Rash Verified 10/13/17 21:53 Review of Systems - Constitutional Constitutional: reports: Fatigue, Weakness, Poor appetite. denies: Fever - Ears, Nose & Throat Ears, Nose & Throat: reports: Postnasal drainage - Cardiovascular Cardiovascular: reports: Palpitations (reports had some this AM; no resolved), Lightheadedness, Exertional dyspnea, Decr. exercise tolerance - Respiratory Respiratory: reports: SOB with exertion, Apnea (uses CPAP). denies: SOB at rest - Gastrointestinal Gastrointestinal: reports: Abdominal distention, Constipation, Diarrhea, Nausea, Bloating, Poor appetite, Early satiety - Genitourinary Genitourinary: reports: Frequency, Urgency - Musculoskeletal Musculoskeletal: reports: Stiffness, Muscle weakness - Integumentary Integumentary: reports: Pruritis (with dressing), Dryness - Neurological Neurological: reports: General weakness - Psychiatric Psychiatric: denies: Depression, Anxiety - Hematologic/Lymphatic Hematologic/Lymphatic: reports: Anemia, Blood clots - All Other Systems All Other Systems: reports: Reviewed and negative Physical Exam - Vital Signs Temperature: 96.5 C Pulse Rate: 65 Respiratory Rate: 18 O2 Saturation: 92 (ra @ rest) Blood Pressure: 118/72 - Physical Exam General Appearance: positive: Mild distress Eyes Bilateral: positive: Normal inspection ENT: negative: Pharyngeal erythema Neck: positive: Trachea midline Cardiovascular: positive: Regular rate & rhythm Respiratory: positive: No respiratory distress Abdomen: positive: Abnml bowel sounds, Mass (able to palpate areas of carncinomatosis through abd. wall), Distended Skin: positive: Pallor, Dryness, Other (dressing intact) Extremities: positive: No pedal edema Neurologic/Psychiatric: positive: Oriented x3, Weakness, Flat affect Palliative Care - POLST Patient has POLST: Yes POLST Status: DNR, Selective Treatment Pain: Pain unchanged, Location (Most the patient's discomfort is his abdominal cramping, gas, and diarrhea. Reports the opium tincture does give him some good time, with the diarrhea at rest he feels better and more participatory. Continues quite ambivalent about doing it on a regular basis, secondary to fears of constipation.) Tiredness/Fatigue: Severe (7-10) Drowsiness/Sedation: Mild (1-3) Nausea: Moderate (4-6) (Uses ondansetron and Compazine usually scheduled 2-3 times a day, feels this helps with eating.) Depression: Mild (1-3) Anxiety: Mild (1-3) Dyspnea: Moderate (4-6) Anorexia: Moderate (4-6) Sleep: Variable sleep pattern (up at night to void/stool) Constipation: Intermittent constipation Feelings of wellbeing/Perceived Quality of Life: Fair, No change, Comment (continues fluctuating; wishes were better but sees himself declining slowly) Performance Status: Patient presents today with increased difficulty getting from sitting to standing, gait much slower. Reports he is doing less, though they did take their grandchild to the beach today. When he does participate in more active does have significant fatigue the next day, is still able to attend to his own ADLs, managing most of his medications independently. - Palliative Care Discussion: Patient presents somewhat resigned, feels that this point treatment is still acceptable. Does have fluctuating days, still enjoying visits with family and friends. Though does find this more exhausting. LADONNA [address] in place, spent time with answering questions regarding anticipatory guidance. Remains somewhat in a holding pattern, but both recognizing slow decline Impression and Recommendations - Palliative Care Impression: This is a 67-year-old gentleman with stage IV pancreatic cancer with metastases to the liver, lung, and peritoneum with ascites. He does have an aspire catheter, this has allowed him to have less distressed with drainage, trying to find the right balance. Patient continues with fluctuating status, is scheduled for treatment next week. Palliative care to continue provide support for pain and symptom management and anticipatory guidance Recommendations/Counseling Done: 1. Hemorrhoids. Patient does report increased irritation with the diarrhea and hemorrhoidal discomfort. Does have external Proctosol HC, reviewed strategies for managing including decreasing amount of stooling, cleansing. 2. Abdominal discomfort. This again is multifactorial in origin, has agreed to trial regular use of tincture of opium, as it is the cramping and diarrhea that causes the most distress. He does feel better on the days he uses it. Reviewed that 1-2 bowel movements a day, given the amount he is eating is adequate. Requested he try and do this for more than 1 or 2 days but through the week. Did initiate acupuncture, did find someone to do home visits and did find some improvement as far as his fatigue. 3. Pancreatic cancer stage IV. Patient continues in active treatment, feels currently this is still supportive of his goals. Patient does present with mild functional decline, and noted muscle wasting. Continues to struggle with adequate nutrition. 4. Advanced care planning. Patient's goals are to continue with chemotherapy, hoping to avoid any acute hospitalization R crises, LADONNA ST in place, counseling for appropriate anticipatory grieving acknowledged and normalized. Time Spent: 60 minutes with greater than 50% of this done in counseling regarding pain and symptom management, anticipatory guidance.
== END 2018-04-26 16:16 | disposition home or self-care (01) ==
LOC: PC 16:15
PROVIDERS: ATTEND Nurse Practitioner Adult Health
DX: Z51.5 Encounter for palliative care (principal); K64.4 Residual hemorrhoidal skin tags; R19.7 Diarrhea, unspecified; C25.9 Malignant neoplasm of pancreas, unspecified; C78.7 Secondary malignant neoplasm of liver and intrahepatic bile duct; C78.00 Secondary malignant neoplasm of unspecified lung; C78.6 Secondary malignant neoplasm of retroperitoneum and peritoneum; R18.0 Malignant ascites; M62.59 Muscle wasting and atrophy, not elsewhere classified, multiple sites; Z86.711 Personal history of pulmonary embolism; Z79.01 Long term (current) use of anticoagulants; Z79.891 Long term (current) use of opiate analgesic; Z66 Do not resuscitate; Z79.899 Other long term (current) drug therapy
CPT/HCPCS: 99350

== ENCOUNTER 2018-05-04 14:04 | Outpatient (CLI) | payer MEDICARE, BC ==
[2018-05-04 17:58] LABS: BASOPHILS # (AUTO) 0.1 10^3/uL (0.0-0.1); BASOPHILS % (AUTO) 1.2 %; EOSINOPHILS # (AUTO) 0.1 10^3/uL (0.0-0.7); EOSINOPHILS % (AUTO) 1.3 %; HGB - HEMOGLOBIN 11.2 g/dL (14.0-18.0); LYMPHOCYTES # (AUTO) 0.7 10^3/uL (1.5-3.5); LYMPHOCYTES % (AUTO) 16.5 %; MEAN CORPUSCULAR HEMOGLOBIN 28.2 pg (27.0-31.0); MEAN CORPUSCULAR HGB CONC 32.7 g/dL (32.0-36.0); MEAN CORPUSCULAR VOLUME 86.1 fL (80.0-94.0); MEAN PLATELET VOLUME 7.5 fL (7.4-11.4); MONOCYTES # (AUTO) 1.1 10^3/uL (0.0-1.0); MONOCYTES % (AUTO) 25.4 %; NEUTROPHILS # (AUTO) 2.5 10^3/uL (1.5-6.6); NEUTROPHILS % (AUTO) 55.6 %; PLT - PLATELET COUNT 252 10^3/uL (130-450); RED BLOOD COUNT 3.98 10^6/uL (4.70-6.10); RED CELL DISTRIBUTION WIDTH 19.2 % (12.0-15.0); WHITE BLOOD COUNT 4.5 x10^3/uL (4.8-10.8)
[2018-05-04 18:17] LABS: ALBUMIN 2.1 g/dL (3.2-5.5); ALBUMIN/GLOBULIN RATIO 0.5 (1.0-2.2); BILIRUBIN,TOTAL 0.8 mg/dL (0.2-1.0); CALCIUM 8.2 mg/dL (8.5-10.3); CREATININE 0.8 mg/dL (0.6-1.2); TOTAL PROTEIN 6.5 g/dL (6.7-8.2)
== END 2018-05-04 14:05 | disposition home or self-care (01) ==
LOC: LAB.F 14:04
PROVIDERS: ATTEND Internal Medicine Hematology & Oncology
DX: C25.0 Malignant neoplasm of head of pancreas (principal); I26.09 Other pulmonary embolism with acute cor pulmonale
CPT/HCPCS: 36415; 80053; 85025

== ENCOUNTER 2018-05-10 20:07 | Outpatient (CLI) | payer MEDICARE, BC ==
--- NOTE | 2018-05-10 20:16 | CONSULTATION NOTE ---
Palliative Care Follow Up - Referral Referring Provider: Sahra YOUNG/Dr. Simone Sun Time of Visit: [phone] Referral setting: Home (It is a taxing and considerable effort for the patient to leave the home secondary to fatigue and to facilitate family conference) Referral Reason: Pancreatic Cancer with liver/lung mets - Information Sources Records reviewed: Previous records reviewed History/Review of Systems obtained from: Patient, Family ( Sandra present for visit) Exam limitations: No limitations - History of Present Illness Update Brief HPI Update: This is a kimberly 67-year-old gentleman with stage IV pancreatic cancer with known liver metastases, celiac and retroperitoneal denopathy, peritoneal c arcinomatosis, recurrent ascites with Pleurx catheter, and lung metastases. He also has a history of PE and is on enoxaparin. He did not receive chemotherapy this last week, he is seeing a different oncologist with Dr. Sun on vacation, and agreed between the two of them to take a break. Patient is feeling somewhat overwhelmed, quite exhausted, was given the chance to "recharge his batteries. Patient continues to present with fairly high symptom burden, severe fatigue, ongoing GI symptoms, though they have improved with daily tincture of opium, ongoing abdominal discomfort, and nausea intermittent. He does have anorexia, food is not appealing, and fluctuates as far as intake but admits to most likely weight loss. Social History - Living Situation Living arrangement: At home Living Situation: With spouse/s.o. Support System: Sandra spouse did retire, she is his primary caregiver. [place] who he loves to see the grandchildren, his daughter who is a nurse, comes and assist with the Pleurx catheter and dressing changes. Patient does have supportive community, is seen friends and family, though he does feel like sometimes her coming to say their goodbyes. Medications/Allergies - Medications Home Medications: Ambulatory Orders Medication Instructions Recorded Confirmed Metoprolol Succinate 25 tab PO DAILY 07/29/17 05/11/18 Ranitidine HCl [Zantac] 150 mg PO BID 07/29/17 05/11/18 Ondansetron Odt [Zofran] 4 mg TL Q6H PRN #14 tablet 10/14/17 05/11/18 Enoxaparin [Lovenox] 120 mg SL DAILY 03/22/18 05/11/18 Lactobacillus Acidophilus 1 cap PO DAILY 03/22/18 05/11/18 [Probiotic Acidophilus] Lipase/Protease/Amylase [Creon Dr 1 cap PO TID 03/22/18 05/11/18 3,000 Units Capsule] Opium Tincture 0.4 ml PO Q4HR PRN 03/22/18 05/11/18 Polyethylene Glycol 3350 [Miralax] 17 gm PO DAILY 03/22/18 05/11/18 Prochlorperazine Maleate 10 mg PO Q6HR PRN 03/22/18 05/11/18 [Compazine] Morphine Sulfate [Morphine Sulf 5 - 10 mg PO Q3HR PRN 03/29/18 05/11/18 Oral (Roxanol)] Senna [Senokot] 8.6 mg PO BID PRN 03/29/18 05/11/18 Dexamethasone [Decadron] 4 mg PO DAILY 05/11/18 05/11/18 - Allergies Allergies/Adverse Reactions: Allergies Allergy/AdvReac Type Severity Reaction Status Date / Time Sulfa (Sulfonamide Allergy Rash Verified 10/13/17 21:53 Antibiotics) adhesive tape AdvReac Rash Verified 10/13/17 21:53 Review of Systems - Constitutional Constitutional: reports: Fatigue, Weakness, Poor appetite. denies: Fever - Cardiovascular Cardiovascular: reports: Exertional dyspnea, Decr. exercise tolerance. denies: Chest pain - Respiratory Respiratory: reports: SOB with exertion. denies: Cough, SOB at rest - Gastrointestinal Gastrointestinal: reports: Abdominal pain, Abdominal distention, Constipation, Diarrhea, Nausea, Bloating, Poor appetite, Early satiety, Other (draining about 1 liter every other day from aspire catheter). denies: Reflux/heartburn - Musculoskeletal Musculoskeletal: reports: Stiffness, Muscle weakness - Integumentary Integumentary: reports: Dryness, Other (drsg at pleurx exit site) - Neurological Neurological: reports: General weakness - Psychiatric Psychiatric: reports: Depression - Endocrine Endocrine: reports: Intolerance to cold - Hematologic/Lymphatic Hematologic/Lymphatic: reports: Anemia. denies: Recurrent infections - All Other Systems All Other Systems: reports: Reviewed and negative Physical Exam - Vital Signs Temperature: 97.0 C Pulse Rate: 88 Respiratory Rate: 18 Blood Pressure: 118/82 - Physical Exam General Appearance: positive: No acute distress Eyes Bilateral: positive: Normal inspection ENT: negative: Pharyngeal erythema Neck: positive: No JVD, Trachea midline Cardiovascular: positive: Regular rate & rhythm Respiratory: positive: Diminished in bases Abdomen: positive: Abnml bowel sounds, Tenderness, Distended, Other (able to palpate areas of carcinotmatosis/firmness/masses) Skin: positive: Pallor, Dryness, Other (drg intact). negative: Jaundice Extremities: positive: Pedal edema (trace in ankles/mid calf), Other (hands very cold to touch; has toe nail taped up no s/s redness or infection) Neurologic/Psychiatric: positive: Oriented x3, Weakness, Depressed mood/affect, Flat affect Palliative Care - POLST Patient has POLST: Yes POLST Status: DNR, Selective Treatment Pain: Pain unchanged, Location (Patient's abdominal discomfort is improved with taking the tincture of opium daily, does settle down the GI symptoms. He has have some achiness, pressure and discomfort at bedtime, has not use the morphine on a regular basis. Does express concerns regarding "addiction".) Tiredness/Fatigue: Severe (7-10) Drowsiness/Sedation: Moderate (4-6) Nausea: Mild (1-3) (using ondansetron with good effect) Depression: Moderate (4-6) Anxiety: Moderate (4-6) Dyspnea: Mild (1-3) Anorexia: Severe (7-10) Sleep: Variable sleep pattern Constipation: Yes, Opoid induced, Intermittent constipation Feelings of wellbeing/Perceived Quality of Life: Fair, Worsening Performance Status: Patient still ambulatory around the house, does report has been more fatigued and less walking. Though he does report he feels better and he does feel a bit more activity. He has been much more sedentary. He is still able to manage his own ADLs, though appears much weaker and with more upper and lower extremity muscle wasting - Palliative Care Discussion: Patient has always wanted to hope for the best, be that 1-3% that makes it. But he does admit that he is starting to feel like he is losing ground, is feeling much more depressed and down. He feels both physically and emotionally more drained. We did discuss in the context of his family, regarding Legacy work, he feels like if he entertains this or admits to this that he is giving in. We did spend quite a bit of time discussing paradox, hoping for the best, but also be preparing for the with worse. He is wanting to explore other avenues, including hands-on healing, he has had some experience with this with his mother, to the [employer] [facility]. Did encourage him to reach out and follow-up on things that are of his interest, certainly would not add to his discomfort. Results - Lab Results Lab results reviewed: Yes Impression and Recommendations - Palliative Care Impression: This is a 67-year-old gentleman with metastatic stage IV pancreatic cancer to the liver, lung, peritoneum with severe ascites. Patient continues to have fluctuating status, currently on break from chemotherapy, continues to struggle both physically and emotionally with the ramifications of his disease. Palliative care to continue provide support for both pain and symptom management as well as anticipatory guidance Recommendations/Counseling Done: 1. Abdominal discomfort. Patient is pleased with his daily O tincture of opium and as far as managing his GI symptoms. Patient expressed his concern regarding addiction with using the morphine 5 mg at bedtime or at the times of discomfort, counseling done provided regarding addressing his fears and concerns. Encouraged to use more frequently, reviewed improvement with the opium. 2. Anorexia. Patient with severe fatigue, no appetite, and taste changes. Discussed introducing dexamethasone 4 mg daily at least short-term to see if we could improve his intake. Review at this may improve his appetite, and energy level, as well as assist with nausea. Instructed to take with food, and no later than mid day. 3. Depression. Patient expressing feelings of sadness and hopelessness. Patient is not interested in pursuing antidepressant, we did discuss resources regarding his interest in healing therapies. Encouraged to follow-up with healing circles, as well as given phone numbers for local [employer] [facility] per his interest. Counseling also provided regarding Legacy work, suggested journaling and stories particularly in the context of his children and grandchildren, he does like to write and did find this acceptable after processing his dismay about leaving his family. 4. Pancreatic cancer stage IV. Patient currently on chemotherapy hiatus, is planning to restart. Instructed and counseled about ways to enjoy his current break, focusing on activities that bring him christopher and comfort. Encouraged more activity as far as ambulating, but balancing that with his fatigue. They do have an appointment for genetic counseling at the end of the week, as well as Dr. Shaffer is going to follow-up on further immunotherapy options as they have not heard about the tumor marker shift. 5. Advanced care planning. LADONNA ST in place, continue to discuss goals both short-term and long-term. Counseling provided for anticipatory guidance, local resources, and address questions and concerns Time Spent: 60 minutes with getting 50% of this done in counseling regarding pain and symptom management, addressing concerns regarding opioid use, counseling for depression and anticipatory guidance
== END 2018-05-10 20:08 | disposition home or self-care (01) ==
LOC: PC 20:07
PROVIDERS: ATTEND Nurse Practitioner Adult Health
DX: Z51.5 Encounter for palliative care (principal); G89.3 Neoplasm related pain (acute) (chronic); R63.0 Anorexia; R53.83 Other fatigue; R11.0 Nausea; R43.9 Unspecified disturbances of smell and taste; F32.9 Major depressive disorder, single episode, unspecified; C25.9 Malignant neoplasm of pancreas, unspecified; C78.7 Secondary malignant neoplasm of liver and intrahepatic bile duct; C78.6 Secondary malignant neoplasm of retroperitoneum and peritoneum; C78.00 Secondary malignant neoplasm of unspecified lung; R18.0 Malignant ascites; Z86.711 Personal history of pulmonary embolism; Z79.01 Long term (current) use of anticoagulants; Z79.891 Long term (current) use of opiate analgesic; Z66 Do not resuscitate; Z79.899 Other long term (current) drug therapy
CPT/HCPCS: 99350

== ENCOUNTER 2018-05-18 14:32 | Outpatient (CLI) | payer MEDICARE, BC ==
[2018-05-18 17:57] LABS: BASOPHILS # (AUTO) 0.1 10^3/uL (0.0-0.1); EOSINOPHILS # (AUTO) 0.1 10^3/uL (0.0-0.7); EOSINOPHILS % (AUTO) 1.2 %; HGB - HEMOGLOBIN 11.9 g/dL (14.0-18.0); LYMPHOCYTES # (AUTO) 0.7 10^3/uL (1.5-3.5); LYMPHOCYTES % (AUTO) 10.4 %; MEAN CORPUSCULAR HEMOGLOBIN 28.5 pg (27.0-31.0); MEAN CORPUSCULAR VOLUME 86.3 fL (80.0-94.0); MEAN PLATELET VOLUME 7.7 fL (7.4-11.4); MONOCYTES # (AUTO) 0.8 10^3/uL (0.0-1.0); MONOCYTES % (AUTO) 12.4 %; NEUTROPHILS # (AUTO) 4.7 10^3/uL (1.5-6.6); PLT - PLATELET COUNT 300 10^3/uL (130-450); RED BLOOD COUNT 4.16 10^6/uL (4.70-6.10); RED CELL DISTRIBUTION WIDTH 18.9 % (12.0-15.0); WHITE BLOOD COUNT 6.3 x10^3/uL (4.8-10.8)
[2018-05-18 18:27] LABS: ALBUMIN/GLOBULIN RATIO 0.4 (1.0-2.2); BILIRUBIN,TOTAL 0.9 mg/dL (0.2-1.0); CALCIUM 8.5 mg/dL (8.5-10.3); CREATININE 0.7 mg/dL (0.6-1.2); TOTAL PROTEIN 6.6 g/dL (6.7-8.2)
== END 2018-05-18 14:33 | disposition home or self-care (01) ==
LOC: LAB.F 14:32
PROVIDERS: ATTEND Internal Medicine Hematology & Oncology
DX: C25.0 Malignant neoplasm of head of pancreas (principal)
CPT/HCPCS: 36415; 80053; 85025

== ENCOUNTER 2018-05-24 09:00 | Outpatient (CLI) | payer MEDICARE, BC ==
--- NOTE | 2018-05-24 17:38 | CONSULTATION NOTE ---
Palliative Care Follow Up - Referral Referring Provider: Dr. Tamara Lacy/Dr Simone Sun Time of Visit: [phone] Referral setting: Home (Is a taxing considerable effort for the patient to leave the home secondary to fatigue and diarrhea.) Referral Reason: Metastatic Pancreatic Cancer/Cellulits - Information Sources Records reviewed: Previous records reviewed History/Review of Systems obtained from: Patient, Family ( Sandra present for visit) Exam limitations: No limitations - History of Present Illness Update Brief HPI Update: This is a kimberly 67-year-old gentleman with stage IV pancreatic cancer With known liver metastases, celiac and retroperitoneal adenopathy, peritoneal carcinomatosis, and has an aspire catheter for draining of ascites, and lung metastases. He has not received his chemo last week, as he had developed some symptoms of cellulitis, not at the aspire exit site but below at the insertion site. Received a call the daycare concerned patient had been on his Keflex for about 4 days, unclear it was improving and concern for worsening. Patient presents with no systemic symptoms, vital signs are stable, no increased pain, chills, or malaise. Patient has a fairly large abdomen with ascites and carcinomatosis, inspection of exit site through Tegaderm, no redness, drainage, area identified where cellulitis, is a dull pink, not warm to touch, does flush darker when patient is sitting up versus lying down. Marked area of concern with black pen to provide some comparison. Patient is concerned as he was unable to receive his chemotherapy, he is also somewhat discouraged as his GI symptoms and discomfort including his diarrhea alternating with constipation, did not improve despite no recent chemotherapy. Social History - Living Situation Living arrangement: At home Living Situation: With spouse/s.o. Support System: Patient had a kimberly family gathering over the weekend for his birthday, his is retired and is his primary caregiver. They do have frequent contact with both his daughter Delia who assists with care of the aspire catheter, as well as his son and their family. Medications/Allergies - Medications Home Medications: Ambulatory Orders Medication Instructions Recorded Confirmed Metoprolol Succinate 25 tab PO DAILY 07/29/17 05/25/18 Ranitidine HCl [Zantac] 150 mg PO BID 07/29/17 05/25/18 Ondansetron Odt [Zofran] 4 mg TL Q6H PRN #14 tablet 10/14/17 05/25/18 Enoxaparin [Lovenox] 120 mg SL DAILY 03/22/18 05/25/18 Lactobacillus Acidophilus 1 cap PO BID 03/22/18 05/25/18 [Probiotic Acidophilus] Lipase/Protease/Amylase [Creon Dr 1 cap PO TID 03/22/18 05/25/18 3,000 Units Capsule] Opium Tincture 0.4 ml PO Q4HR PRN 03/22/18 05/25/18 Polyethylene Glycol 3350 [Miralax] 17 gm PO DAILY 03/22/18 05/25/18 Prochlorperazine Maleate 10 mg PO Q6HR PRN 03/22/18 05/25/18 [Compazine] Morphine Sulfate [Morphine Sulf 5 - 10 mg PO Q3HR PRN 03/29/18 05/25/18 Oral (Roxanol)] Senna [Senokot] 8.6 mg PO BID PRN 03/29/18 05/25/18 Cephalexin [Keflex] 500 mg PO Q6HR 05/25/18 05/25/18 - Allergies Allergies/Adverse Reactions: Allergies Allergy/AdvReac Type Severity Reaction Status Date / Time Sulfa (Sulfonamide Allergy Rash Verified 10/13/17 21:53 Antibiotics) adhesive tape AdvReac Rash Verified 10/13/17 21:53 Review of Systems - Constitutional Constitutional: reports: Fatigue, Weakness, Poor appetite, Weight loss. denies: Fever, Chills - Cardiovascular Cardiovascular: reports: Edema, Decr. exercise tolerance. denies: Chest pain - Respiratory Respiratory: reports: SOB with exertion. denies: SOB at rest - Gastrointestinal Gastrointestinal: reports: Abdominal pain, Abdominal distention, Constipation, Diarrhea (alternating with constipation), Nausea, Reflux/heartburn, Bloating, Poor appetite, Early satiety. denies: Vomiting - Musculoskeletal Musculoskeletal: reports: Muscle weakness - Integumentary Integumentary: reports: Dryness, Other (new dx of cellulitis below apsire exit site) - Neurological Neurological: reports: General weakness - Psychiatric Psychiatric: reports: Depression, Anxiety - Hematologic/Lymphatic Hematologic/Lymphatic: reports: Anemia (11.9), Blood clots (on enoxaparin), Recurrent infections (new cellulitis) - All Other Systems All Other Systems: reports: Reviewed and negative Physical Exam - Physical Exam General Appearance: positive: No acute distress Eyes Bilateral: positive: Normal inspection Neck: positive: No JVD, Trachea midline Cardiovascular: positive: Regular rate & rhythm Respiratory: positive: Diminished in bases. negative: Wheezes, Rales, Rhonchi Abdomen: positive: Mass (palpable carcinomatosis near surface;), Distended, Taut Skin: positive: Other Extremities: positive: Pedal edema (trace edema in ankles;) Neurologic/Psychiatric: positive: Oriented x3, Mood/affect nml, Flat affect Palliative Care - POLST Patient has POLST: Yes POLST Status: DNR, Selective Treatment Pain: Pain unchanged, Location (Pain is mostly from GI upset, with alternating pressure from constipation and diarrhea, lower abdominal area does provide pressure though does not identify it as pain. He has been more comfortable using his tincture of opium on a regular basis as well as intermittent 5 mg of morphine.) Tiredness/Fatigue: Severe (7-10) Drowsiness/Sedation: Mild (1-3) Nausea: Moderate (4-6) Depression: Moderate (4-6) Anxiety: Moderate (4-6) Dyspnea: Mild (1-3) Anorexia: Moderate (4-6) Sleep: Variable sleep pattern Constipation: Comment Feelings of wellbeing/Perceived Quality of Life: Fair, Worsening Performance Status: Patient continues with a slow functional decline, still able to manage his own ADLs, ambulate around the home. He is experiencing increased activity intolerance, increased fatigue, less ability to engage in prolonged activity. Has been mostly homebound. - Palliative Care Discussion: Patient does express concern regarding his overall status, most acutely his recent infection. Is hopeful that we will receive his treatment next week, though is discouraged somewhat that being off of it has not improved his symptoms, recognizing more likely attributed to his ongoing disease. Patient co ntinues to try and focus on the present, it is patient's birthday this week, continues to feel like everything is 1 of the "lasts" as he sees people. Results - Lab Results Lab results reviewed: Yes Impression and Recommendations - Palliative Care Impression: This is a 67-year-old gentleman with metastatic stage IV pancreatic cancer to the liver, lung, peritoneum with severe ascites. Does present with some sequela regarding his aspire catheter with cellulitis, currently receiving antibiotics and does appear to be responding. Patient currently on break from chemotherapy, continues to struggle with the ramifications of his ongoing decline in disease. Palliative care to continue provide support for both pain and symptom management as well as anticipatory guidance. Recommendations/Counseling Done: 1. Cellulitis of the abdomen, attributed to his aspire catheter. Patient does seem to responding no signs or symptoms of systemic infection. Counseling done regarding signs and symptoms to access emergent care, will be seen oncologist on Thursday. 2. Abdominal discomfort. This again is multifactorial in origin, is doing better with regularly use of opium and increased use of morphine. Continues to titrate to effect. Suspect increased diarrhea secondary to antibiotic use. Instructed to increase his probiotics to twice daily. 3. Pancreatic cancer stage IV. Patient remains on chemotherapy hiatus, will be seen oncologist this week. 4. Depression. Patient continued to express feelings of sadness, grief, and loss regarding coping with his current disease process. Counseling provided to continue to normalize this, will continue to see patient on a regular basis as he finds this helpful in processing his current situation. Time Spent: 45 minutes was given 50% of this done in counseling regarding symptoms of infection, accessing ED threshold, pain and symptom management and anticipatory guidance
== END 2018-05-24 09:01 | disposition home or self-care (01) ==
LOC: PC 09:00
PROVIDERS: ATTEND Nurse Practitioner Adult Health
DX: Z51.5 Encounter for palliative care (principal); T85.79XA Infection and inflammatory reaction due to other internal prosthetic devices, implants and grafts, initial encounter; L03.311 Cellulitis of abdominal wall; R19.7 Diarrhea, unspecified; K59.00 Constipation, unspecified; C25.9 Malignant neoplasm of pancreas, unspecified; F32.9 Major depressive disorder, single episode, unspecified; C78.7 Secondary malignant neoplasm of liver and intrahepatic bile duct; C78.6 Secondary malignant neoplasm of retroperitoneum and peritoneum; C78.00 Secondary malignant neoplasm of unspecified lung; R18.0 Malignant ascites; Z79.01 Long term (current) use of anticoagulants; Z66 Do not resuscitate; Z79.891 Long term (current) use of opiate analgesic
CPT/HCPCS: 99349

== ENCOUNTER 2018-05-31 16:15 | Outpatient (CLI) | payer MEDICARE, BC ==
--- NOTE | 2018-05-31 20:32 | CONSULTATION NOTE ---
Palliative Care Follow Up - Referral Referring Provider: Tamara Lacy/Dr. Simone Sun Time of Visit: [phone] Referral setting: Home Referral Reason: Metastatic Pancreatic Cancer - Information Sources Records reviewed: Previous records reviewed History/Review of Systems obtained from: Patient, Family (Sandra at visit) Exam limitations: No limitations - History of Present Illness Update Brief HPI Update: This is a 68-year-old gentleman with stage IV pancreatic cancer with known liver metastases, celiac and retroperitoneal adenopathy, peritoneal carcinomatosis, and has a aspire catheter for draining of ascites, and known lung metastases. He has finished his Keflex yesterday, He was started on this for a diffuse cellulitis in his left lower abdomen below the aspire exit site, more centralized to the insertion site. is concerned again as it has not improved, she felt it may be worsening. On examination it remains somewhat similar to last week, though may be have diffusely spread 1 or 2 inches to the left. It is dull pink, not hot to touch, nor tender. Patient without any systemic symptoms, no fever, chills, vital signs stable. It again flushes much darker when he stands, puts pressure on it. He also is having some tape irritation. Patient did receive his chemotherapy last week, has had no real change in his GI symptoms, they continue to be problematic with intermittent constipation and diarrhea, intermittent nausea. He has been able to stay hydrated, eating small amounts. His most profound symptom he has noted from re- resuming his treatment, is fatigue. He is due to have a CT scan next Thursday, with further follow-up regarding supportive care versus continued treatment. Social History - Living Situation Living arrangement: At home Living Situation: With spouse/s.o. (Sandra spouse is retired, she is the primary caregiver. Unfortunately she currently has a severe cold. They are trying to minimize their interaction. [place] and his daughter [place] frequently, does have a large [place] of friends and support) Medications/Allergies - Medications Home Medications: Ambulatory Orders Medication Instructions Recorded Confirmed Metoprolol Succinate 25 tab PO DAILY 07/29/17 05/25/18 Ranitidine HCl [Zantac] 150 mg PO BID 07/29/17 05/25/18 Ondansetron Odt [Zofran] 4 mg TL Q6H PRN #14 tablet 10/14/17 05/25/18 Enoxaparin [Lovenox] 120 mg SL DAILY 03/22/18 05/25/18 Lactobacillus Acidophilus 1 cap PO BID 03/22/18 05/25/18 [Probiotic Acidophilus] Lipase/Protease/Amylase [Creon Dr 1 cap PO TID 03/22/18 05/25/18 3,000 Units Capsule] Opium Tincture 0.4 ml PO Q4HR PRN 03/22/18 05/25/18 Polyethylene Glycol 3350 [Miralax] 17 gm PO DAILY 03/22/18 05/25/18 Prochlorperazine Maleate 10 mg PO Q6HR PRN 03/22/18 05/25/18 [Compazine] Morphine Sulfate [Morphine Sulf 5 - 10 mg PO Q3HR PRN 03/29/18 05/25/18 Oral (Roxanol)] Senna [Senokot] 8.6 mg PO BID PRN 03/29/18 05/25/18 Cephalexin [Keflex] 500 mg PO Q6HR 05/25/18 05/25/18 - Allergies Allergies/Adverse Reactions: Allergies Allergy/AdvReac Type Severity Reaction Status Date / Time Sulfa (Sulfonamide Allergy Rash Verified 10/13/17 21:53 Antibiotics) adhesive tape AdvReac Rash Verified 10/13/17 21:53 Review of Systems - Constitutional Constitutional: reports: Fatigue, Weakness, Other (has temporal and upper/lower extremity wasting; not reflective weight secondary to ascites). denies: Fever, Chills - Ears, Nose & Throat Ears, Nose & Throat: reports: Hearing loss (mild), Dry mouth - Cardiovascular Cardiovascular: reports: Palpitations (reports episode yesterday), Decr. exercise tolerance - Respiratory Respiratory: reports: SOB with exertion. denies: SOB at rest - Gastrointestinal Gastrointestinal: reports: Abdominal distention, Constipation, Diarrhea, Nausea, Bloating, Poor appetite, Early satiety, Other (draining about a liter every other day;) - Genitourinary Genitourinary: reports: Frequency - Musculoskeletal Musculoskeletal: reports: Muscle weakness - Integumentary Integumentary: reports: Other (cellulitis LLQ of abdomen) - Neurological Neurological: reports: General weakness, Dizziness (occasional), Memory problems (some forgetfulness) - Psychiatric Psychiatric: reports: Depression - Endocrine Endocrine: reports: Intolerance to cold - Hematologic/Lymphatic Hematologic/Lymphatic: reports: Anemia (hgb 11.6) - All Other Systems All Other Systems: reports: Reviewed and negative Physical Exam - Vital Signs Temperature: 97.0 C Pulse Rate: 56 Respiratory Rate: 18 O2 Saturation: 96 (ra @ rest) Blood Pressure: 118/78 (laying 128/72 sitting) - Physical Exam General Appearance: positive: No acute distress Eyes Bilateral: positive: Normal inspection ENT: positive: No signs of dehydration Neck: positive: No JVD, Trachea midline Cardiovascular: positive: Regular rate & rhythm Respiratory: positive: Diminished in bases. negative: Wheezes, Rales, Rhonchi Abdomen: positive: Distended, Other (appears to be increase in palpable carcinomatosis;unclear if with patient weight loss and/or less fluid) Skin: positive: Pallor, Dryness, Other (see HPI) Extremities: positive: No pedal edema Neurologic/Psychiatric: positive: Oriented x3, Flat affect Palliative Care - POLST Patient has POLST: Yes POLST Status: DNR, Selective Treatment Pain: Pain unchanged, Location (abdominal discomfort; cramping with bowels; using morphine 7 mg about twice a day; tincure of opium 1-2 x a day) Tiredness/Fatigue: Severe (7-10) Drowsiness/Sedation: Moderate (4-6) Nausea: Mild (1-3) Depression: Mild (1-3) Anxiety: Mild (1-3) Dyspnea: Mild (1-3) Anorexia: Moderate (4-6) Sleep: Variable sleep pattern (up to urinate; patient wears CPAP) Constipation: Intermittent constipation (alternating with diarrhea; using M iralax at HS) Feelings of wellbeing/Perceived Quality of Life: Poor, Acceptable, No change - Palliative Care Discussion: They have had family and friends visiting. This is been somewhat bittersweet. Patient is somewhat anxious regarding plans into the future, does feel even though he is not significantly improved, and is holding the cancer "at bay". Was unclear if he could not do anything, as he feels like that would be giving up. He actually did not have any improvement of his symptomology when off for the chemotherapy, only thing he has noticed from the treatment has been fatigue. Patient continues to decline, trying to spend as much time with his family as possible particularly coming into the holidays. Results - Lab Results Lab results reviewed: Yes Impression and Recommendations - Palliative Care Impression: This is a 68-year-old gentleman with metastatic stage IV pancreatic cancer to the liver, lung, peritoneum, with ascites and carcinomatosis. Patient with diffuse cellulitis in left lower quadrant, has not completely resolved. Palliative care to continue provide support for pain and symptom management as well as anticipatory guidance. Recommendations/Counseling Done: 1. Cellulitis of the left lower quadrant abdomen, attributed to his aspire catheter not at exit site but insertion site. She has completed antibiotics yesterday, with only mild improvement but no acute signs or symptoms of infection. Patient does not present with any symptoms of systemic infection. Counseling done regarding signs and symptoms of excess emergent care or follow- up, was seen by oncologist, and able to proceed with treatment last week. 2. Abdominal discomfort. This again is multifactorial in origin, using his morphine twice a day, as well as his tincture of opium. Continues to have intermittent diarrhea and constipation which impacts his quality of life. Prescription provided for morphine 20 mg per/ml # 30 mls. Counseling provided to encourage more frequent use, reviewed mechanism of action and most likely only last 3-4 hours. 3. Pancreatic cancer stage IV, patient has resumed chemotherapy, is to have scan done on Thursday. 4. Depression. Patient continues to express feelings of sadness, grief and loss with his current disease process and ongoing decline. Counseling provided and support. Time Spent: 45 minutes with greater than 50% of this done in counseling and follow-up on concerns regarding cellulitis, pain, fatigue and anticipatory guidance
== END 2018-05-31 16:16 | disposition home or self-care (01) ==
LOC: PC 16:15
PROVIDERS: ATTEND Nurse Practitioner Adult Health
DX: Z51.5 Encounter for palliative care (principal); T85.79XD Infection and inflammatory reaction due to other internal prosthetic devices, implants and grafts, subsequent encounter; L03.311 Cellulitis of abdominal wall; R19.7 Diarrhea, unspecified; K59.00 Constipation, unspecified; F32.9 Major depressive disorder, single episode, unspecified; C25.9 Malignant neoplasm of pancreas, unspecified; C78.7 Secondary malignant neoplasm of liver and intrahepatic bile duct; C78.6 Secondary malignant neoplasm of retroperitoneum and peritoneum; C78.00 Secondary malignant neoplasm of unspecified lung; R18.0 Malignant ascites; Z79.899 Other long term (current) drug therapy; Z66 Do not resuscitate; Z79.891 Long term (current) use of opiate analgesic
CPT/HCPCS: 99349

== ENCOUNTER 2018-06-14 14:11 | Outpatient (CLI) | payer MEDICARE, BC ==
[2018-06-14 18:15] LABS: ALBUMIN/GLOBULIN RATIO 0.4 (1.0-2.2); CALCIUM 8.2 mg/dL (8.5-10.3); CREATININE 0.6 mg/dL (0.6-1.2); TOTAL PROTEIN 6.6 g/dL (6.7-8.2)
[2018-06-14 19:42] LABS: BASOPHILS % (AUTO) 2.5 %; EOSINOPHILS % (AUTO) 1.9 %; HGB - HEMOGLOBIN 10.7 g/dL (14.0-18.0); LYMPHOCYTES % (AUTO) 15.6 %; MEAN CORPUSCULAR HGB CONC 32.4 g/dL (32.0-36.0); MEAN CORPUSCULAR VOLUME 92.7 fL (80.0-94.0); MEAN PLATELET VOLUME 8.1 fL (7.4-11.4); MONOCYTES % (AUTO) 27.4 %; NEUTROPHILS % (AUTO) 52.6 %; PLT - PLATELET COUNT 335 10^3/uL (130-450); RED BLOOD COUNT 3.58 10^6/uL (4.70-6.10); RED CELL DISTRIBUTION WIDTH 20.2 % (12.0-15.0); WHITE BLOOD COUNT 3.4 x10^3/uL (4.8-10.8)
[2018-06-14 19:43] LABS: ABNORMAL LYMPHS % (MANUAL) 0 %
[2018-06-14 20:13] LABS: BAND NEUTROPHILS % (MANUAL) 2 %; EOSINOPHILS # (MANUAL) 0.1 10^3/uL (0-0.7); LYMPHOCYTES # (MANUAL) 0.4 10^3/uL (1.5-3.5); LYMPHOCYTES % (MANUAL) 11 %; MONOCYTES # (MANUAL) 0.9 10^3/uL (0.0-1.0); NEUTROPHILS # (MANUAL) 1.9 10^3/uL (1.5-6.6); NEUTROPHILS % (MANUAL) 55 %
[2018-06-14 20:14] LABS: DIFFERENTIAL COMMENT MANUAL DIFFERENTIAL; PLATELET ESTIMATE, MANUAL NORMAL (130-450,000) (NORMAL); PLATELET MORPHOLOGY NORMAL APPEARANCE (NORMAL)
== END 2018-06-14 14:12 | disposition home or self-care (01) ==
LOC: LAB.F 14:11
PROVIDERS: ATTEND Internal Medicine Hematology & Oncology
DX: C25.0 Malignant neoplasm of head of pancreas (principal); I26.09 Other pulmonary embolism with acute cor pulmonale
CPT/HCPCS: 36415; 80053; 85025

== ENCOUNTER 2018-06-14 16:00 | Outpatient (CLI) | payer MEDICARE, BC ==
--- NOTE | 2018-06-14 19:49 | CONSULTATION NOTE ---
Palliative Care Follow Up - Referral Referring Provider: Sahra YOUNG/Dr. Sun Time of Visit: [phone] Referral setting: Home Referral Reason: Metastatic Pancreatic Cancer - Information Sources Records reviewed: Previous records reviewed History/Review of Systems obtained from: Patient, Family (daughter Delia present; Sandra) Exam limitations: No limitations - History of Present Illness Update Brief HPI Update: ;This is a 68-year-old gentleman with stage IV pancreatic cancer with known liver metastases, celiac and retroperitoneal adenopathy, With recent CT scans with increased mediastinal lymph nodes, left hilar soft tissue mass increased, moderate right-sided pleural effusion, continued ascites and peritoneal carcinomatosis unfortunately though presents with elevated LFT most likely related to progressive infiltrative liver disease. His chemotherapy was held, with discussion weighing benefit vs doing more harm if liver enzymes continue to progress. He did have labs drawn, is waiting for outcome whether it will get chemotherapy this week or not. He is struggling with the decision though does recognize that decision may not be his. He has been feeling somewhat better, having some "normal days", with less fatigue, he continues with intermittent nausea but improved off chemotherapy, continues to struggle with fluctuating GI symptoms including diarrhea mixed with constipation, he is getting relief from his abdominal discomfort with his tincture of opium and morphine. He is using the morphine about 10 mg 3-4 times a day with good relief. His abdomen does seem much more distended, they have not drained for about 2 days, is more comfortable with less pressure, he did not progress with his cold symptoms. He still has a dull red rash area in the lower abdomen has not increased in warmth, tenderness, or redness. His daughter Delia and his are present today for the visit. Social History - Living Situation Living arrangement: At home Living Situation: With spouse/s.o. Support System: Patient's has retired to assist with his care, they have been enjoying family, has had multiple visitors. Medications/Allergies - Medications Home Medications: Ambulatory Orders Medication Instructions Recorded Confirmed Metoprolol Succinate 25 tab PO DAILY 07/29/17 06/14/18 Ranitidine HCl [Zantac] 150 mg PO BID 07/29/17 06/14/18 Ondansetron Odt [Zofran] 4 mg TL Q6H PRN #14 tablet 10/14/17 06/14/18 Enoxaparin [Lovenox] 120 mg SL DAILY 03/22/18 06/14/18 Lactobacillus Acidophilus 1 cap PO DAILY 03/22/18 06/14/18 [Probiotic Acidophilus] Lipase/Protease/Amylase [Creon Dr 1 cap PO TID 03/22/18 06/14/18 3,000 Units Capsule] Opium Tincture 0.4 ml PO Q4HR PRN 03/22/18 06/14/18 Polyethylene Glycol 3350 [Miralax] 17 gm PO DAILY 03/22/18 06/14/18 Prochlorperazine Maleate 10 mg PO Q6HR PRN 03/22/18 06/14/18 [Compazine] Morphine Sulfate [Morphine Sulf 10 mg PO Q3HR PRN 03/29/18 06/14/18 Oral (Roxanol)] Senna [Senokot] 8.6 mg PO BID PRN 03/29/18 06/14/18 - Allergies Allergies/Adverse Reactions: Allergies Allergy/AdvReac Type Severity Reaction Status Date / Time Sulfa (Sulfonamide Allergy Rash Verified 10/13/17 21:53 Antibiotics) adhesive tape AdvReac Rash Verified 10/13/17 21:53 Review of Systems - Constitutional Constitutional: reports: Fatigue, Other (Upper and lower extremity wasting, continues with significant ascites in his abdomen, does admit to having weight loss.). denies: Fever, Chills - Eyes Eyes: reports: Vision loss - Ears, Nose & Throat Ears, Nose & Throat: reports: Hearing loss (mild) - Cardiovascular Cardiovascular: reports: Decr. exercise tolerance. denies: Chest pain - Respiratory Respiratory: reports: SOB with exertion. denies: SOB at rest - Gastrointestinal Gastrointestinal: reports: Abdominal pain, Abdominal distention, Constipation, Diarrhea, Reflux/heartburn, Early satiety. denies: Nausea, Vomiting - Musculoskeletal Musculoskeletal: reports: Stiffness, Muscle weakness - Integumentary Integumentary: reports: Dryness, Other (dull rash lower abdomen; diffuse not changed) - Neurological Neurological: reports: General weakness - Psychiatric Psychiatric: reports: Depression, Anxiety - Hematologic/Lymphatic Hematologic/Lymphatic: reports: Recurrent infections (treated "cellulitis" of lower abdomen with no change) - All Other Systems All Other Systems: reports: Reviewed and negative Physical Exam - Vital Signs Temperature: 97.1 C Pulse Rate: 68 Respiratory Rate: 18 O2 Saturation: 96 (ra @ rest) Blood Pressure: 112/62 - Physical Exam General Appearance: positive: No acute distress, Alert Eyes Bilateral: positive: Normal inspection Neck: positive: Trachea midline Cardiovascular: positive: Regular rate & rhythm Respiratory: positive: Diminished in bases Abdomen: positive: Mass (omental caking/carcinomatosis palpable through most of abdominal surface), Distended, Taut Skin: positive: Pallor (swallow in color), Dryness Extremities: positive: No pedal edema Neurologic/Psychiatric: positive: Oriented x3, Weakness, Depressed mood/affect Palliative Care - POLST Patient has POLST: Yes POLST Status: DNR, Selective Treatment Pain: Pain worsening, Location (Patient pain is mostly related to GI discomfort and cramping; is using the morphine 10 mg 3 times a day along with opium tincture to assist with diarrhea. Does feel like for the most part other than first thing in the morning he is pretty comfortable. Does admit to increasing abdominal discomfort with his increased tightness from his ascites.) Tiredness/Fatigue: Severe (7-10) Drowsiness/Sedation: Mild (1-3) Nausea: Mild (1-3) Depression: Mild (1-3) Anxiety: Mild (1-3) Dyspnea: Moderate (4-6) Anorexia: Moderate (4-6), Weight loss Constipation: Yes, Opoid induced, Intermittent constipation Feelings of wellbeing/Perceived Quality of Life: Fair, Acceptable, Worsening Performance Status: Patient reports he is more sedentary, not as active. He is still able to ambulate though without any assistive devices, still able to independently bathe though does recognize this is becoming more difficult. I would put him at a PPS of 70% - Palliative Care Discussion: Discussion and counseling related to patient's progressive disease, does not want to hasten his demise, And feels like the enzymes are essentially going to make the decision for him. His sister who had of brain cancer, had thought to the bitter and, almost panicking if not able to get chemo. We discussed at length that sometimes we can do more harm than good if the patient's bodies are such that they are not going to tolerate the chemotherapy. Both patient's daughter and , want to focus on quality of life, and are worried about making him feel more poor, though we did discuss in the context of no treatment and given his poor elevated enzymes, his disease will progress and his symptoms will be reflective of this. He does enjoy what he calls his "normal days", he has had some time where he has felt better, has no significant side effect of the chemo has been the fatigue. He does have a few things he was able to tease out that might need to be made priorities as he is looking at his future decline. He is willing to meet with the palliative care contractor general building, is struggling with not having his "miracle, though is able to reflect that multiple things that have been happening for him and in his life are miracles. Impression and Recommendations - Palliative Care Impression: This is a 68-year-old gentleman with metastatic pancreatic cancer to the liver, lungs, and adenopathy. Patient does have severe ascites managed by aspire drain. Patient does present with elevated liver enzymes, most likely reflective of continued progressive disease. Continues to struggle regarding his ongoing decline, awaiting results of today's blood tests to weigh benefits and burdens of moving forward with treatment. Palliative care to continue to provide support until patient transitions to hospice. Recommendations/Counseling Done: 1. Ascites. Counseling provided to patient, regarding comfort status. Did encourage to drain at least every other day, recommended for the next several days drain daily, does patient does admit with less discomfort with ascites less. 2. Abdominal pain. This is multifactorial in origin, did encourage to medicate for comfort, has increased to 10 mg with good results, using about 3 times a day occasionally in the evenings. We did discuss the finding using on a regular basis can put him on some time release morphine for more consistent relief. 3. Fatigue. This is multifactorial in origin, does have rising liver enzymes, expect will see more side effects related to this pending. Patient is doing well with fluid intake and eating small amounts. Currently is still independent in his ADLs. 4. Advanced care planning. Patient's liver enzymes continue to escalate, most likely will be a more rapid decline and would recommend transition to hospice as soon as possible. Patient remains hopeful can continue with chemotherapy, but does recognize he has progressive disease, and is willing to look at the concerns and recommendations regarding weighing benefits and burdens and not hastening his demise. Did reach out to Dr. Ansari, reports if liver enzymes increasing would recommend transitioning to hospice. Plan made with patient and to follow-up on labs in a.m. and recommendations Dr. Medina and check in with family. Tomorrow morning. Time Spent: 60 minutes with greater 50% of this done in counseling regarding goals of care, progressive disease, and anticipatory guidance. Coordination of care with oncologist and referral to palliative care contractor general building
== END 2018-06-14 16:01 | disposition home or self-care (01) ==
LOC: PC 16:00
PROVIDERS: ATTEND Nurse Practitioner Adult Health
DX: Z51.5 Encounter for palliative care (principal); R18.0 Malignant ascites; G89.3 Neoplasm related pain (acute) (chronic); R53.83 Other fatigue; C25.9 Malignant neoplasm of pancreas, unspecified; C78.7 Secondary malignant neoplasm of liver and intrahepatic bile duct; C78.6 Secondary malignant neoplasm of retroperitoneum and peritoneum; C78.02 Secondary malignant neoplasm of left lung; C78.01 Secondary malignant neoplasm of right lung; J91.0 Malignant pleural effusion; R59.0 Localized enlarged lymph nodes; R21 Rash and other nonspecific skin eruption; Z66 Do not resuscitate; Z79.891 Long term (current) use of opiate analgesic
CPT/HCPCS: 99350